=== PATIENT | female | born 1985 | race Caucasian/White ===

== ENCOUNTER 2019-07-21 09:51 | Emergency (ER) | payer OTHER, SELFPAY ==
--- NOTE | 2019-07-21 09:54 | ED.HEATRA ---
HPI - Head Injury General Chief complaint: Head Injury Stated complaint: head injury Time Seen by Provider: 07/21/19 10:12 Source: patient and RN notes reviewed Mode of arrival: ambulatory Limitations: no limitations History of Present Illness HPI Narrative: 34-year-old female presents with concern for head injury. Reports at work yesterday she was emptying a cart full of products when a package of vinyl yuki hit her head. She reports the vinyl yuki was stacked approximately to the same height as her head when 1 of the packages slipped off and hit her head. She reports that hit the left lateral side of her head. She denies any bleeding, open wounds, neck pain. Reports headache and scalp tenderness. She denies any loss of consciousness. She denies vomiting. Reports taking Tylenol for pain. MD Complaint: head injury Related Data Home Medications Medication Instructions Recorded Confirmed escitalopram oxalate mg 07/21/19 Allergies Allergy/AdvReac Type Severity Reaction Status Date / Time No Known Allergies Allergy Unverified 10/21/18 16:04 Review of Systems Review of Systems: Narrative: CONSTITUTIONAL: Denies malaise, chills, sweats, or fever. EYES: Denies visual changes ENT: Denies rhinorrhea CARDIOVASCULAR: Denies chest pain, palpitations, or edema. RESPIRATORY: Denies cough or dyspnea. SKIN: Denies open wounds MUSCULOSKELETAL: Denies back pain, neck pain. Reports left scalp tenderness NEUROLOGIC: Denies numbness, weakness. Reports headache. All systems reviewed & are unremarkable except as noted in HPI and below PMFSH Family History Family History (Updated 01/17/16 @ 23:19 by DOCTOR UNKNOWN) Grandparent Carcinoma of colon Family history of malignant neoplasm of breast Family history of coronary artery disease Diabetes mellitus Family history of malignant neoplasm of brain Father Family history of diabetes mellitus in first degree relative Mother Family history of malignant neoplasm of cervix Family history of malignant neoplasm of breast in first degree relative Hypertension Social History Social History Smoking status: Former smoker Second hand tobacco smoke exposure: Yes Smoking end date: 06/21/14 Alcohol intake: never Comments At time of signature, agree with nursing past medical, surgical, social and family history. There is no relevant family history pertinent to the presenting complaint Exam Narrative: Exam Narrative: GENERAL: Well-appearing, well-nourished, and in no acute distress. HEAD: Normocephalic, atraumatic; no bruising, erythema, open wounds noted. EYES: PERRLA, conjunctivae clear, and EOMI. No nystagmus. ENT: Nares clear, turbinates pink, no rhinorrhea or epistaxis. NECK: Supple. No jugular venous distension or carotid bruits. Carotids were easily palpable bilaterally. CHEST: No respiratory distress. Speaks in full sentences. HEART: Regular rate and rhythm. No murmur heard. EXTREMITIES: Normal range of motion. No edema. Normal strength SKIN: Warm, dry, no erythema, ecchymosis, open wounds noted NEURO: Alert and oriented x3. No focal deficits. Cranial nerves II through XII grossly intact PSYCH: Normal mood and affect Course Course Emergency Course: Patient is aware of diagnosis, understands and agrees to treatment plan. Anticipatory guidance given. Patient agrees to follow-up as directed and is aware of reasons to seek care at the emergency department. Portions of this record may have been created with voice recognition software Vital Signs Vital signs: Vital Signs Temperature 97.4 F L 07/21/19 10:06 Pulse Rate 89 07/21/19 10:06 Respiratory Rate 16 07/21/19 10:06 Blood Pressure 124/82 07/21/19 10:06 Pulse Oximetry 100 07/21/19 10:06 Temperature 97.4 F L 07/21/19 10:06 Pulse Rate 89 07/21/19 10:06 Respiratory Rate 16 07/21/19 10:06 Blood Pressure 124/82 07/21/19 10:06 Pulse Oximetry 100 07/21/19 10:06 R
[2019-07-21 10:06] VITALS: BP 124/82; PULSE 89; RESP 16; TEMP 36.3; O2SAT 100
== END 2019-07-21 10:25 | disposition home or self-care (01) ==
PROVIDERS: Emergency Provider Nurse Practitioner
DX: S09.90XA Unspecified injury of head, initial encounter (principal); W20.8XXA Other cause of strike by thrown, projected or falling object, initial encounter; Z87.891 Personal history of nicotine dependence; F41.9 Anxiety disorder, unspecified
CPT/HCPCS: 99213; G0463

== ENCOUNTER 2020-10-15 03:13 | Emergency (ER) | payer OTHER, SELFPAY ==
[2020-10-15 03:20] VITALS: BP 143/85; PULSE 100; RESP 16; O2SAT 100
--- NOTE | 2020-10-15 03:51 | ED.GENADULT ---
HPI - General Adult General Chief complaint: Upper Respiratory Infection Stated complaint: sorethroat Time Seen by Provider: 10/15/20 03:23 History of Present Illness HPI narrative: Patient is a 35-year-old female who presents the emergency department with sore throat. The patient reports since she has had a sore throat patient states that she has been at work in a doctor's office doing an externship. Patient denies fever reports that whenever she talks she feels as though she is a little hoarse patient denies abdominal pain vomiting diarrhea. The patient reports that she just got her second Covid vaccine. Related Data Allergies Allergy/AdvReac Type Severity Reaction Status Date / Time No Known Allergies Allergy Verified 09/06/19 09:32 Review of Systems Review of Systems: Narrative: A 10 system review of systems was completed on the patient and is negative except for what is stated in the HPI. Nursing and ancillary documentation was reviewed. PMFSH Past Medical History Medical History (Updated 10/15/20 @ 03:55 by Winston Alexander MD) Anxiety Eczema Family History Family History Grandparent Carcinoma of colon Family history of malignant neoplasm of breast Family history of coronary artery disease Diabetes mellitus Family history of malignant neoplasm of brain Father Family history of diabetes mellitus in first degree relative Mother Family history of malignant neoplasm of cervix Family history of malignant neoplasm of breast in first degree relative Hypertension Social History Social History Smoking status: Former smoker Second hand tobacco smoke exposure: Yes Smoking end date: 06/21/14 Alcohol intake: never Exam Narrative: Exam Narrative: GENERAL: Well-appearing, well-nourished, and in no acute distress. HEAD: Normocephalic, atraumatic. EYES: PERRLA and EOMI. ENT: Nares clear, no rhinorrhea or epistaxis. Mucous membranes moist. Oropharynx is slightly erythematous there is no exudate present NECK: Supple. CHEST: Clear to auscultation. No respiratory distress. HEART: Regular rate and rhythm. No murmur heard. Normal peripheral pulses. ABDOMEN: Soft, nontender, nondistended, normal active bowel sounds. EXTREMITIES: Normal range of motion. No edema. SKIN: Warm, dry, no rash. NEURO: No focal deficits. Alert and oriented x3. PSYCH: Normal mood and affect. Course Vital Signs Vital signs: Vital Signs Pulse Rate 100 10/15/20 03:20 Respiratory Rate 16 10/15/20 03:20 Blood Pressure 143/85 H 10/15/20 03:20 Pulse Oximetry 100 10/15/20 03:20 Pulse Rate 100 10/15/20 03:20 Respiratory Rate 16 10/15/20 03:20 Blood Pressure 143/85 H 10/15/20 03:20 Pulse Oximetry 100 10/15/20 03:20 Medical Decision Making Vital Signs Vital Signs: Vital Signs Pulse Rate 100 10/15/20 03:20 Respiratory Rate 16 10/15/20 03:20 Blood Pressure 143/85 H 10/15/20 03:20 Pulse Oximetry 100 10/15/20 03:20 Pulse Rate 100 10/15/20 03:20 Respiratory Rate 16 10/15/20 03:20 Blood Pressure 143/85 H 10/15/20 03:20 Pulse Oximetry 100 10/15/20 03:20 Lab Data Labs: Strep Screen Presumptive Negative *(Reference Range: Negative)* Discharge Plan Discharge Clinical Impression: Acute viral pharyngitis Patient Disposition: Home, Self-Care Condition: Stable Instructions: Antibiotic Form, Pharyngitis (ED) Additional Instructions: A COVID-19 test was sent today he should self quarantine until the results of the test are obtained Prescriptions: No Action albuterol sulfate 90 mcg/actuation HFA aerosol inhaler 1 puff INHALATION Q4H PRN (Reason: shortness of breath or wheezing) Qty: 6.7 RF: 0 benzonatate 200 mg capsule 200 mg PO TID PRN (Reason: c
[2020-10-15 04:10] VITALS: BP 126/91; PULSE 92; RESP 16; O2SAT 97
[2020-10-15 20:46] LABS: SARS-CoV-2 RNA PCR Negative
== END 2020-10-15 04:12 | disposition home or self-care (01) ==
PROVIDERS: Emergency Provider Emergency Medicine
DX: J02.9 Acute pharyngitis, unspecified (principal); Z20.822 Contact with and (suspected) exposure to COVID-19; Z87.891 Personal history of nicotine dependence
CPT/HCPCS: 87081; 87880; 99283; C9803; U0003; U0005

== ENCOUNTER 2021-01-26 11:14 | Emergency (ER) | payer OTHER, SELFPAY ==
[2021-01-26 11:23] VITALS: BP 137/98; PULSE 101; RESP 16; TEMP 36.4; O2SAT 100
--- NOTE | 2021-01-26 11:35 | ED.URI ---
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 Patient states she has a shorter couple day history of sore throat, preceded by usual, seasonal sinus congestion with PND. She is vaccinated and had a recent negative Covid test. No fever, loss of taste/smell, CP, vomiting/diarrhea, S OB, rash. Symptoms are mild, worse when eating Related Data Home Medications Medication Instructions Recorded Confirmed sertraline 100 mg tablet 100 mg PO DAILY 12/24/20 12/24/20 paroxetine HCl mg PO 01/26/21 rosuvastatin mg 01/26/21 Allergies Allergy/AdvReac Type Severity Reaction Status Date / Time No Known Allergies Allergy Verified 12/24/20 08:32 Review of Systems Review of Systems: The patient has been informed that they may have pre-hypertension or Hypertension based on a BP reading in the department. I recommend that the patient call the primary care provider listed on their discharge instructions or a physician of their choice this week to arrange follow up for further evaluation of possible pre-hypertension or Hypertension General/Constitutional: No weight loss,fever Eyes: N0: Redness,discharge Ears/Nose/Throat: No: Epistaxis,ear discharge Respiratory: Denies: Hemoptysis Gastrointestinal: No Vomiting, Bleeding-rectal Skin: No Lumps, eruption Neurologic: No Focal Weakness,Sz Hematologic: Denies: Petechiae/Purpura Psychiatric: No: Suicida ideationl All Other Systems: Reviewed and Negative [facility] Past Medical History Medical History (Updated 01/26/21 @ 11:50 by Bill Reyes MD) Anxiety Eczema Family History Family History Grandparent Carcinoma of colon Family history of malignant neoplasm of breast Family history of coronary artery disease Diabetes mellitus Family history of malignant neoplasm of brain Father Family history of diabetes mellitus in first degree relative Mother Family history of malignant neoplasm of cervix Family history of malignant neoplasm of breast in first degree relative Hypertension Social History Social History (Updated 12/24/20 @ 08:42 by Salome Hansen CMA) Smoking status: Former smoker Second hand tobacco smoke exposure: Yes Smoking end date: 06/21/14 Alcohol intake: never Substance use: unknown Comments At time of signature, agree with nursing past medical, surgical, social and family history. There is no relevant family history pertinent to the presenting complaint Exam Narrative: General Appearance: Overweight/ well nourished EYE: PERRLA, Conjunctiva clear Ears: Auditory canal normal, TM normal Nose: Rhinorrhea, Mucousal erythema Mouth/Throat: MM moist, Uvula midline, Pharyngeal erythema Neck: Supple, No adenopathy Respiratory: No respiratory distress, airway patent Cardiovascular: RRR, No JVD Musculoskeletal: Non tender, Normal strength Skin: Warm, Dry Neurological: A&O x3, CN II-XII intact Psychiatric: Normal mood, Normal affect Course Vital Signs Vital signs: Vital Signs Temperature 97.5 F L 01/26/21 11:23 Pulse Rate 101 H 01/26/21 11:23 Respiratory Rate 16 01/26/21 11:23 Blood Pressure 137/98 H 01/26/21 11:23 Pulse Oximetry 100 01/26/21 11:23 Temperature 97.5 F L 01/26/21 11:23 Pulse Rate 101 H 01/26/21 11:23 Respiratory Rate 16 01/26/21 11:23 Blood Pressure 137/98 H 01/26/21 11:23 Pulse Oximetry 100 01/26/21 11:23 MDM - URI/Sore Throat Lab Data Labs: Lab Results 01/26/21 Range/Units 11:23 POC SARS CoV-2 Ag Negative (Negative) Discharge Plan Discharge Clinical Impression: Odynophagia Patient Disposition:
== END 2021-01-26 11:54 | disposition home or self-care (01) ==
PROVIDERS: Emergency Provider Emergency Medicine; PCP Emergency Medicine
DX: R13.10 Dysphagia, unspecified (principal); Z20.822 Contact with and (suspected) exposure to COVID-19; F41.9 Anxiety disorder, unspecified
CPT/HCPCS: 87426; 99213; C9803; G0463

== ENCOUNTER 2021-10-31 16:57 | Emergency (ER) | payer OTHER, SELFPAY ==
--- NOTE | 2021-10-31 17:20 | ED.URI ---
HPI - URI/Sore Throat General Chief Complaint: Upper Respiratory Infection Stated Complaint: [place]/SINUS CONGESTION Time Seen by Provider: 10/31/21 17:20 Source: patient and RN notes reviewed Mode of arrival: ambulatory Limitations: no limitations History of Present Illness HPI Narrative: 36-year-old female presented for complaint of sinus pressure, congestion, post nasal drainage and sore throat for 1 week. The week prior she endorses stomach issues which have resolved. She denies cough, shortness of breath, wheezing, fevers or chills. She has been taking [id number] antihistamine for symptoms. She has boosted for COVID and vaccinated for flu. MD elicited complaint: cough Related Data Home Medications Medication Instructions Recorded Confirmed venlafaxine 75 mg capsule,extended 75 mg PO DAILY 09/02/21 release 24 hr Allergies Allergy/AdvReac Type Severity Reaction Status Date / Time No Known Allergies Allergy Verified 09/02/21 10:45 Review of Systems Review of Systems: CONSTITUTIONAL: denies malaise, chills, sweats, fever EYES: Denies visual changes, redness, or discharge ENT: Reports rhinorrhea, congestion, sinus pain, sore throat CARDIOVASCULAR: Denies chest pain, palpitations, edema RESPIRATORY: Reports post nasal drainage. Denies dyspnea GASTROINTESTINAL: Denies abdominal pain, nausea, vomiting, diarrhea SKIN: Denies rash or itching MUSCULOSKELETAL: denies myalgia NEUROLOGIC: Denies headache PMFSH Past Medical History Medical History Anxiety Eczema Surgical History Surgical History H/O bilateral salpingectomy History of lumpectomy of left breast History of tonsillectomy and adenoidectomy [place] teeth removed Family History Family History Grandparent Carcinoma of colon Family history of malignant neoplasm of breast Family history of coronary artery disease Diabetes mellitus Family history of malignant neoplasm of brain Father Family history of diabetes mellitus in first degree relative Mother Family history of malignant neoplasm of cervix Family history of malignant neoplasm of breast in first degree relative Hypertension Social History Social History Smoking status: Former smoker Second hand tobacco smoke exposure: Yes Smoking end date: 06/21/14 Alcohol intake: never Substance use: unknown Exam Narrative: GENERAL: well-appearing HEAD: Normocephalic EYES: conjunctivae clear ENT: Mucous membranes moist. TM pearly castañeda with normal light reflex bilaterally; no tragal tenderness. Oropharynx erythematous without lesions or exudate, no drooling, no hoarseness, no trismus, uvula midline. NECK: Supple. No lymphadenopathy CHEST: Clear to auscultation, breath sounds equal. No respiratory distress, speaks in full sentences. HEART: Regular rate and rhythm. No murmur heard. SKIN: Warm, dry, no rash. NEURO: Alert and oriented x3. PSYCH: Normal mood and affect Course Course Emergency Course: Patient is aware of diagnosis, understands and agrees to treatment plan. Anticipatory guidance given. Patient agrees to follow-up as directed and is aware of reasons to seek care at the emergency department. Portions of this record may have been created with voice recognition software Level of Care: Express Care Visit Vital Signs Vital signs: reviewed MDM - URI/Sore Throat MDM Narrative Medical decision making narrative: Strep, COVID, flu negative. She is stable and appropriate for outpatient treatment and follow-up. Differential Diagnosis Differential diagnosis: Likely upper respiratory infection, sinusitis, viral infection, influenza and pharyngitis Lab Data Attestation: I reviewed the patient's lab results. Discharge Plan Discharge Cli
[2021-10-31 17:36] VITALS: BP 124/88; PULSE 98; RESP 16; TEMP 36.1; O2SAT 100
== END 2021-10-31 17:35 | disposition home or self-care (01) ==
PROVIDERS: Emergency Provider Nurse Practitioner Family; PCP Emergency Medicine
DX: J30.2 Other seasonal allergic rhinitis (principal); Z20.822 Contact with and (suspected) exposure to COVID-19; Z87.891 Personal history of nicotine dependence; F41.9 Anxiety disorder, unspecified
CPT/HCPCS: 87081; 87426; 87804; 87880; 99213; C9803; G0463

== ENCOUNTER 2022-06-30 16:50 | Emergency (ER) | payer BC, SELFPAY ==
--- NOTE | 2022-06-30 16:54 | ED.EAR ---
HPI - Ear Problem General Chief complaint: Ear Stated complaint: EARACHE Time Seen by Provider: 06/30/22 16:55 Source: patient and RN notes reviewed History of Present Illness HPI Narrative: Patient is a 37-year-old female who presents to the Urgent Care with complaints of right earache for the last 2 weeks and right frontal sinus drainage/pain. Patient states she has taken ibuprofen today and does take daily Claritin D. denies any fevers, nausea, vomiting. No other acute complaints. No acute distress noted. Patient aware of the plan of care. Some parts of this dictation were generated by voice recognition software and may contain typographical and/or grammatical inaccuracies. Related Data Home Medications Medication Instructions Recorded Confirmed venlafaxine 75 mg capsule,extended 75 mg PO DAILY 09/02/21 06/30/22 release 24 hr (Effexor XR) rosuvastatin 5 mg tablet 5 mg PO DAILY 06/30/22 06/30/22 Allergies Allergy/AdvReac Type Severity Reaction Status Date / Time No Known Allergies Allergy Verified 06/30/22 16:56 Review of Systems Review of Systems: CONSTITUTIONAL: Denies fever, chills, or sweats. EYES: Denies visual changes, redness, or discharge. ENT: Reports right-sided frontal sinus pressure/pain and right otalgia CARDIOVASCULAR: Denies chest pain, palpitations, or edema. RESPIRATORY: Denies cough or dyspnea. GASTROINTESTINAL: Denies abdominal pain, nausea, vomiting, or diarrhea. GENITOURINARY: Denies dysuria or hematuria. SKIN: Denies rash or itching. MUSCULOSKELETAL: Denies back pain, joint pain, or myalgia. NEUROLOGIC: Denies headache, numbness, or weakness. All other systems reviewed are negative, except as documented in HPI. PENDING SALE TO [facility] Past Medical History Medical History Anxiety Eczema Surgical History Surgical History H/O bilateral salpingectomy History of lumpectomy of left breast History of tonsillectomy and adenoidectomy [place] teeth removed Family History Family History Grandparent Carcinoma of colon Family history of malignant neoplasm of breast Family history of coronary artery disease Diabetes mellitus Family history of malignant neoplasm of brain Father Family history of diabetes mellitus in first degree relative Mother Family history of malignant neoplasm of cervix Family history of malignant neoplasm of breast in first degree relative Hypertension Social History Social History Smoking status: Former smoker Second hand tobacco smoke exposure: Yes Smoking end date: 06/21/14 Alcohol intake: never Substance use: unknown Comments At the time of my signature, I reviewed and agree with the nursing past medical, surgical, social, and family history. There is no relevant family history pertinent to the patient complaint. Exam Narrative: GENERAL: This is a well-nourished, well-developed patient, in no apparent distress. HEAD: normocephalic, atraumatic. Frontal sinus tenderness EYES: PERRL. Sclera clear/white. Vision is grossly intact. EARS: External ears normal, auditory canals clear and without drainage, TMs normal without perforation. Hearing grossly intact. NOSE: External nose normal with no obvious nasal discharge, nares without redness, no rhinorrhea. THROAT: Mucous membranes moist, posterior pharynx clear. Moderate postnasal drainage NECK: Neck supple, non-tender without lymphadenopathy, masses or thyromegaly. CARDIOVASCULAR: Regular rate and rhythm without murmurs, gallops, or rubs. RESPIRATORY: Clear to auscultation. Breath sounds equal bilaterally. No wheezes, rales, or rhonchi. SKIN: warm, intact with no suspicious lesions or rash, good texture and turgor. NEURO: awake, alert, and oriented to person, place and time. There were no obv
[2022-06-30 16:58] VITALS: BP 132/90; PULSE 85; RESP 16; TEMP 36.6; O2SAT 99
== END 2022-06-30 17:13 | disposition home or self-care (01) ==
PROVIDERS: Emergency Provider Nurse Practitioner Family; PCP Emergency Medicine
DX: J32.9 Chronic sinusitis, unspecified (principal); Z87.891 Personal history of nicotine dependence; F41.9 Anxiety disorder, unspecified
CPT/HCPCS: 99213; G0463

== ENCOUNTER 2023-03-20 10:10 | Outpatient (CLI) | payer BC, SELFPAY ==
--- NOTE | ~2023-03-20 | MM_ITS ---
EXAMINATION: MM screening tree BI w ivonne HISTORY: Screening mammogram, family history of breast cancer in her mother. TECHNIQUE: Craniocaudal and mediolateral oblique 3-D tomosynthesis images were obtained and synthetic 2-D images were generated. CAD analysis was submitted and interpreted. COMPARISON: 06/16/2010 BREAST PARENCHYMAL COMPOSITION: There are scattered areas of fibroglandular density. FINDINGS: RIGHT BREAST: No suspicious mass, calcification, or architectural distortion are identified to sugges t malignancy. There has been no suspicious interval change. LEFT BREAST: An asymmetry is present in line with the nipple axis in the posterior third of the breas t on the mediolateral oblique view. IMPRESSION: 1. Left breast asymmetry. 2. Additional mammographic views and possible breast ultrasound are recommended. BI-RADS Category 0: Incomplete: Needs additional imaging evaluation. Reviewed, dictated and finalized at location A. IMPRESSION: 1. Left breast asymmetry. 2. Additional mammographic views and possible breast ultrasound are recommended . BI-RADS Category 0: Incomplete: Needs additional imaging evaluation.
== END 2023-03-20 10:11 | disposition home or self-care (01) ==
LOC: ANHIMG 10:13
PROVIDERS: PCP Emergency Medicine; Visit Provider Registered Nurse
DX: Z12.31 Encounter for screening mammogram for malignant neoplasm of breast (principal); N64.89 Other specified disorders of breast
CPT/HCPCS: 77063; 77067

== ENCOUNTER 2023-03-24 11:21 | Outpatient (CLI) | payer BC, SELFPAY ==
--- NOTE | ~2023-03-24 | MMUS_ITS ---
EXAMINATION: MM diagnostic tree LT w ivonne, US breast LT limited HISTORY: Left breast asymmetry on screening mammogram TECHNIQUE: Additional 3-D tomosynthesis images of the left breast were performed and synthetic 2-D im ages were generated. CAD analysis was submitted and interpreted. High resolution limited left breast ultrasound was performed. COMPARISON: 03/20/2023, 06/29/2011 FINDINGS: MAMMOGRAPHIC FINDINGS: A subtle asymmetry persists in the posterior third of the breast but somewhat disperses with spot com pression. No definite architectural distortion or suspicious calcification are identified. ULTRASOUND: There is no evidence of focal abnormal solid or cystic mass in the vicinity of the mammographic findi ng in question. IMPRESSION: 1. Probably benign left breast asymmetry. 2. Recommend 6 month follow-up left diagnostic mammogram and possible ultrasound. BI-RADS category 3, probably benign findings. Reviewed, dictated and finalized at location A. IMPRESSION: 1. Probably benign left breast asymmetry. 2. Recommend 6 month follow-up left diagnostic mammogram and possible ultrasoun d. BI-RADS category 3, probably benign findings.
== END 2023-03-24 11:22 | disposition home or self-care (01) ==
LOC: ANHIMG 11:22
PROVIDERS: PCP Emergency Medicine; Visit Provider Registered Nurse
DX: R92.8 Other abnormal and inconclusive findings on diagnostic imaging of breast (principal)
CPT/HCPCS: 76642; 77061; 77065; G0279

== ENCOUNTER 2023-05-22 09:42 | Emergency (ER) | payer BC, SELFPAY ==
[2023-05-22 09:56] VITALS: BP 116/85; PULSE 93; RESP 16; TEMP 36.5; O2SAT 100
--- NOTE | 2023-05-22 10:15 | ED.GENADULT ---
HPI - General Adult General Chief complaint: Upper Respiratory Infection Stated complaint: Eye problems;tight lungs Time Seen by Provider: 05/22/23 10:17 Source: patient, RN notes reviewed and old records reviewed Mode of arrival: ambulatory Limitations: no limitations History of Present Illness HPI narrative: 38 year old female with complaints of 3 days of itchy eyes, with some burning sensation. Patient reports that she has been having some cough intermittently since but today today feels a little short of breath and has a headache, last night she states that chest felt tight. Patient states that she took Kaitlin D last evening and it only helped for a couple of hours. Patient reports that her throat and ears feel itchy and she feels itchy all over with no rash noted. Patient denies any new medications, foods, lotions. soaps, or any contact with pets. No fever,chills or body aches. MD complaint: itchy eyes, itchy throat, itchy all over, cough some dyspnea and tightness. Onset (ago): day(s) (3 days eyes 1 day other symptoms) Severity scale (1-10): 5 Treatments prior to arrival: other (Kaitlin D singulair but now out.) Related Data Home Medications Medication Instructions Recorded Confirmed venlafaxine 75 mg capsule,extended 75 mg PO DAILY 09/02/21 05/22/23 release 24 hr (Effexor XR) rosuvastatin 5 mg tablet 5 mg PO DAILY 06/30/22 05/22/23 drospirenone (contraceptive) 4 mg 05/22/23 05/22/23 (28) tablet (Slynd) Allergies Allergy/AdvReac Type Severity Reaction Status Date / Time No Known Allergies Allergy Verified 09/30/22 14:16 Review of Systems Review of Systems: CONSTITUTIONAL: Denies fever, chills, or sweats. EYES: Denies visual changes, redness, or discharge. ENT: Denies rhinorrhea, congestion,scratchy throat, or otalgia. CARDIOVASCULAR: Denies chest pain, palpitations, or edema states chest tightness at times. RESPIRATORY: Reports cough or dyspnea. GASTROINTESTINAL: Denies abdominal pain, nausea, vomiting, or diarrhea. GENITOURINARY: Denies dysuria or hematuria. SKIN: Denies rash or itching. MUSCULOSKELETAL: Denies back pain, joint pain, or myalgia. NEUROLOGIC: Reports headache,no numbness, or weakness. PSYCHIATRIC: Reports anxiety or depression. All systems reviewed & are unremarkable except as noted in HPI and below PMFSH Past Medical History Medical History (Updated 05/24/23 @ 10:52 by Elenita Rodrigez NP) Anxiety Eczema History of x 1 History of vaginal delivery x 2 Lung collapse 2015 Seasonal allergies Surgical History Surgical History H/O bilateral salpingectomy History of lumpectomy of left breast History of tonsillectomy and adenoidectomy [place] teeth removed Family History Family History Grandparent Carcinoma of colon Family history of malignant neoplasm of breast Family history of coronary artery disease Diabetes mellitus Family history of malignant neoplasm of brain Father Family history of diabetes mellitus in first degree relative Mother Family history of malignant neoplasm of cervix Family history of malignant neoplasm of breast in first degree relative Hypertension Social History Social History Smoking status: Former smoker Second hand tobacco smoke exposure: Yes Smoking end date: 06/21/14 Alcohol intake: current Alcohol use details: Socially Substance use: never Lack of Transportation: No Lack of Food: Never True Current Housing: I Have Housing Concerned About Future Housing: No Difficulty Paying Gas/Electric Bills: No Difficulty Paying for Meds: No Currently Unemployed: No Difficulty w/ Childcare or Family Care: No Living arrangements: with family Occupation/Education: occupation Gender identity (if verbalized by the patient): Femal
== END 2023-05-22 10:55 | disposition home or self-care (01) ==
PROVIDERS: Emergency Provider Registered Nurse; PCP Emergency Medicine
DX: J30.2 Other seasonal allergic rhinitis (principal); Z20.822 Contact with and (suspected) exposure to COVID-19; Z87.891 Personal history of nicotine dependence
CPT/HCPCS: 87426; 87804; 99213; C9803; G0463

== ENCOUNTER 2023-08-17 08:28 | Emergency (ER) | payer BC, SELFPAY ==
[2023-08-17 08:39] VITALS: BP 141/87; PULSE 97; RESP 16; TEMP 36.6; O2SAT 100
--- NOTE | 2023-08-17 08:45 | ED.URI ---
HPI - URI/Sore Throat General Chief Complaint: Upper Respiratory Infection Stated Complaint: body aches, chills, cough Time Seen by Provider: 08/17/23 08:46 Source: patient, RN notes reviewed and old records reviewed Mode of arrival: ambulatory Limitations: no limitations History of Present Illness HPI Narrative: 38-year-old female [facility] complaints of body aches since Wednesday, dry cough, sinus congestion and drainage,no known fever. Patient has been taking DayQuil, Robitussin and some Ibuprofen for her symptoms. Patient reports that she did home COVID this morning which was negative. MD elicited complaint: cough, rhinorrhea and nasal congestion Onset (ago): day(s) (day 3 of symptoms) Pain scale (0-10): 3 Able to tolerate fluids by mouth: Yes Treatments prior to arrival: ibuprofen and other (DayQuil, Robitussin) Related Data Home Medications Medication Instructions Recorded Confirmed venlafaxine 75 mg capsule,extended 75 mg PO DAILY 09/02/21 08/17/23 release 24 hr (Effexor XR) rosuvastatin 5 mg tablet 5 mg PO DAILY 06/30/22 08/17/23 drospirenone (contraceptive) 4 mg 1 mg PO DAILY 05/22/23 08/17/23 (28) tablet (Slynd) Allergies Allergy/AdvReac Type Severity Reaction Status Date / Time No Known Allergies Allergy Verified 08/17/23 08:30 Review of Systems Review of Systems: CONSTITUTIONAL:Reports malaise, chills, sweats, or fever. EYES: Denies visual changes, redness, or discharge. ENT: Reports rhinorrhea, congestion,no sinus pain, no otalgia and no sore throat. CARDIOVASCULAR: Denies chest pain, palpitations, or edema. RESPIRATORY: Reports cough.? Denies dyspnea. GASTROINTESTINAL: Denies abdominal pain, nausea, vomiting, diarrhea SKIN: Denies rash or itching. MUSCULOSKELETAL: reports myalgia. NEUROLOGIC: Denies headache. All systems reviewed & are unremarkable except as noted in HPI and below PMFSH Past Medical History Medical History Anxiety Eczema History of x 1 History of vaginal delivery x 2 Lung collapse 2015 Seasonal allergies Surgical History Surgical History H/O bilateral salpingectomy History of lumpectomy of left breast History of tonsillectomy and adenoidectomy [place] teeth removed Family History Family History Grandparent Carcinoma of colon Family history of malignant neoplasm of breast Family history of coronary artery disease Diabetes mellitus Family history of malignant neoplasm of brain Father Family history of diabetes mellitus in first degree relative Mother Family history of malignant neoplasm of cervix Family history of malignant neoplasm of breast in first degree relative Hypertension Social History Social History Smoking status: Former smoker Second hand tobacco smoke exposure: Yes Smoking end date: 06/21/14 Alcohol intake: current Alcohol use details: Socially Substance use: never Lack of Transportation: No Lack of Food: Never True Current Housing: I Have Housing Concerned About Future Housing: No Difficulty Paying Gas/Electric Bills: No Difficulty Paying for Meds: No Currently Unemployed: No Difficulty w/ Childcare or Family Care: No Living arrangements: with family Occupation/Education: occupation Gender identity (if verbalized by the patient): Female Sexual Orientation (if Verbalized by the Patient): Straight or Heterosexual Spiritual care concerns: No Comments At time of signature, agree with nursing past medical, surgical, social and family history. There is no relevant family history pertinent to the presenting complaint Exam Narrative: GENERAL: Well-appearing, well-nourished, and in no acute distress. HEAD: Normocephalic EYES: PERRLA,
== END 2023-08-17 09:18 | disposition home or self-care (01) ==
PROVIDERS: Emergency Provider Registered Nurse; PCP Emergency Medicine
DX: J10.1 Influenza due to other identified influenza virus with other respiratory manifestations (principal); Z20.822 Contact with and (suspected) exposure to COVID-19; Z87.891 Personal history of nicotine dependence; F41.9 Anxiety disorder, unspecified
CPT/HCPCS: 87426; 87804; 99213; G0463

== ENCOUNTER 2023-09-13 16:46 | Emergency (ER) | payer BC, SELFPAY ==
--- NOTE | 2023-09-13 16:50 | ED.GENADULT ---
HPI - General Adult General Chief complaint: Upper Respiratory Infection Stated complaint: Cough Source: patient, RN notes reviewed and old records reviewed Mode of arrival: ambulatory Limitations: no limitations History of Present Illness HPI narrative: 38-year-old female presents to [facility] with complaints cough, congestion this started over 2 weeks ago. Patient states was diagnosed with influenza B the symptoms never really went away. Patient states cough is worsening. Patient taking [id number] medications with no relief. Related Data Home Medications Medication Instructions Recorded Confirmed venlafaxine 75 mg capsule,extended 75 mg PO DAILY 09/02/21 09/13/23 release 24 hr (Effexor XR) rosuvastatin 5 mg tablet 5 mg PO DAILY 06/30/22 09/13/23 Allergies Allergy/AdvReac Type Severity Reaction Status Date / Time No Known Allergies Allergy Verified 09/13/23 16:52 Review of Systems Constitutional: Constitutional: Reports no additional constitutional complaints, Denies body ache(s), Denies chills, Denies fatigue, Denies fever(s) and Denies headache(s) Eyes: Eyes: Reports no additional eye complaints and Denies blurry vision ENT: Reports system reviewed and no additional complaints, except as documented, Denies vertigo, Denies dizziness, Denies ear discharge, Denies otalgia, Denies facial pain, Denies headache(s), Reports nasal congestion, Denies nasal discharge, Denies sinus pain, Denies sinus pressure and Denies sore throat Cardiovascular: Cardiovascular: Reports no additional cardiovascular complaints, Denies chest pain, Denies chest pain at rest, Denies rapid heart rate and Denies dyspnea Respiratory: Respiratory: Reports no additional respiratory complaints, Reports chest congestion, Reports cough, Denies pain on inspiration, Denies pain with cough and Denies dyspnea Gastrointestinal: Gastrointestinal: Denies abdominal pain, Denies diarrhea, Denies nausea and Denies vomiting Integumentary/Breasts: Skin/Breast: Denies rash Neurologic: Reports system reviewed and no additional complaints, except as documented, Denies vertigo, Denies dizziness and Denies headache(s) Endocrine: Endocrine: Denies fatigue PMFSH Past Medical History Medical History Anxiety Eczema History of x 1 History of vaginal delivery x 2 Lung collapse 2015 Seasonal allergies Surgical History Surgical History H/O bilateral salpingectomy History of lumpectomy of left breast History of tonsillectomy and adenoidectomy [place] teeth removed Family History Family History Grandparent Carcinoma of colon Family history of malignant neoplasm of breast Family history of coronary artery disease Diabetes mellitus Family history of malignant neoplasm of brain Father Family history of diabetes mellitus in first degree relative Mother Family history of malignant neoplasm of cervix Family history of malignant neoplasm of breast in first degree relative Hypertension Social History Social History Smoking status: Former smoker Second hand tobacco smoke exposure: Yes Smoking end date: 06/21/14 Alcohol intake: current Alcohol use details: Socially Substance use: never Lack of Transportation: No Lack of Food: Never True Current Housing: I Have Housing Concerned About Future Housing: No Difficulty Paying Gas/Electric Bills: No Difficulty Paying for Meds: No Currently Unemployed: No Difficulty w/ Childcare or Family Care: No Living arrangements: with family Occupation/Education: occupation Gender identity (if verbalized by the patient): Female Sexual Orientation (if Verbalized by the Patient): Straight or Heterosexual Spiritual care concerns: No Comments
[2023-09-13 16:51] VITALS: BP 121/90; PULSE 107; RESP 16; TEMP 36.3; O2SAT 99
== END 2023-09-13 17:06 | disposition home or self-care (01) ==
PROVIDERS: Emergency Provider Registered Nurse; PCP Emergency Medicine
DX: J22 Unspecified acute lower respiratory infection (principal); Z87.891 Personal history of nicotine dependence; F41.9 Anxiety disorder, unspecified
CPT/HCPCS: 99213; G0463

== ENCOUNTER 2023-09-23 11:23 | Outpatient (CLI) | payer BC, SELFPAY ==
--- NOTE | ~2023-09-23 | MMUS_ITS ---
EXAMINATION: MM diagnostic tree LT w ivonne, US breast LT limited HISTORY: Follow-up left breast asymmetry TECHNIQUE: Additional 3-D tomosynthesis images of the left breast were performed and synthetic 2-D im ages were generated. CAD analysis was submitted and interpreted. High resolution Limited left breast ultrasound was performed. COMPARISON: Comparison to multiple prior studies sequentially, with oldest reviewed study dated 03/20. BREAST PARENCHYMAL COMPOSITION: Not dense: There are scattered areas of fibroglandular density. FINDINGS: MAMMOGRAPHIC FINDINGS: Left breast asymmetries compress with spot and mediolateral views. There is a focal asymmetry superio rly in the left breast on spot MLO view, likely benign intramammary lymph node. ULTRASOUND: Limited left breast ultrasound: At 1:00, 5 cm from the nipple there is a 3 mm cyst. No suspicious mas ses to suggest malignancy. IMPRESSION: 1. No evidence for malignancy in the left breast. 2. Routine yearly screening mammogram and regular clinical breast examination are recommended. BI-RADS Category 2: Benign finding(s). Reviewed, dictated and finalized at location [facility]. IMPRESSION: 1. No evidence for malignancy in the left breast. 2. Routine yearly screening mammogram and regular clinical breast examination a re recommended. BI-RADS Category 2: Benign finding(s).
== END 2023-09-23 11:24 | disposition home or self-care (01) ==
PROVIDERS: PCP Emergency Medicine; Visit Provider Registered Nurse
DX: R92.8 Other abnormal and inconclusive findings on diagnostic imaging of breast (principal)
CPT/HCPCS: 76642; 77061; 77065; G0279

== ENCOUNTER 2023-11-05 06:50 | Emergency (ER) | payer BC, SELFPAY ==
--- NOTE | ~2023-11-05 | CT_ITS ---
CT of the Abdomen and Pelvis: Indication: Abdominal pain Technique: 2.5 mm axial scans were obtained through the abdomen and pelvis following intravenous adm inistration of 100 cc of Omnipaque 350. Dose reduction technique was used on this scan by utilizing a utomated exposure control and iterative reconstruction technique. The dose-length product (DLP) was 6 03.49 mGy-cm. Findings: Scans through the lung bases are unremarkable. The liver, spleen, pancreas, gallbladder, adrenals and left kidney are within normal limits. 3 mm non obstructing right renal stone present. No evidence of aortic aneurysm. No lymphadenopathy. No bowel obstruction or bowel wall thickening. There is no evidence to suggest acute appendicitis. Images through the pelvis were performed. Urinary bladder unremarkable. No pelvic mass seen. No ascit es. Impression: No acute abnormality. 3 mm nonobstructing right renal stone. Reviewed, dictated and finalized at [facility]. Impression: No acute abnormality. 3 mm nonobstructing right renal stone.
[2023-11-05 06:53] VITALS: BP 129/76; PULSE 107; RESP 20; TEMP 36.7; O2SAT 100
[2023-11-05] MEDS: LACTATED RINGERS 1,000 ML 999 ML IV CONT ×2 (07:24→10:11)
[2023-11-05 07:39] LABS: Basophils Percent Auto 0.2 % (0.2-1.2); Eosinophils Absolute Auto 0.1 K/mm3 (0-0.3); Eosinophils Percent Auto 1.4 % (0-4.4); Hematocrit 42.8 % (37.0-47.0); Immature Granulocyte Absolute 0.01 K/mm3 (0.00-0.031); Immature Granulocyte Percent A 0.2 % (0-0.5); Lymphocytes Absolute Auto 0.66 K/mm3 (0.9-3.2); Lymphocytes Percent Auto 15.6 % (18.3-44.2); Mean Corpuscular HGB Conc 32.7 g/dl (32-36); Mean Corpuscular Hemoglobin 30.2 pg (26-34); Mean Corpuscular Volume 92.4 fl (80-100); Mean Platelet Volume 9.9 fl (7.4-10.4); Monocytes Absolute Auto 0.4 K/mm3 (0.1-0.6); Neutrophils Absolute Auto 3.1 K/mm3 (1.3-6.7); Neutrophils Percent Auto 73.6 % (45.5-73.1); Platelet Count Result 215 k/mm3 (150-375); Red Blood Count 4.63 M/mm3 (4.2-5.4); Red Cell Distribution Width 12.6 % (11.5-14.5); White Blood Count 4.2 K/mm3 (4.5-10.0)
[2023-11-05 07:45] LABS: Pregnancy On Board Control Positive; Urine Pregnancy Test Negative
[2023-11-05 07:47] LABS: Appearance Urine Clear (Clear); Bacteria Urine None Seen /hpf; Bilirubin Urine Negative (Negative); Blood Urine Non-Hemolyzed Trace (Negative); Color Urine Yellow (Yellow); Glucose Urine UA Negative (Negative); Ketones Urine Trace mg/dL (Negative); Leukocyte Esterase Ur Trace LEU/UL (Negative); Nitrate Urine Negative (Negative); Non Pathogenic Casts 0-2; Protein Urine Trace mg/dL (Negative); RBC Urine 0-2 /hpf (0-2); Specific Grav Ur 1.023 (1.001-1.035); Squamous Epithelial Cell Urine Few /hpf (Few); Urobilinogen Urine 0.2 mg/dL (<2.0); WBC Urine 0-5 /hpf (0-3)
[2023-11-05 07:49] LABS: Alanine Aminotransferase 40 U/L (6-35); Albumin Level 4.2 g/dL (3.5-5.1); Alkaline Phosphatase 72 U/L (38-126); Anion Gap 6 mmol/L (4-12); Aspartate Amino Transferase 41 U/L (14-36); Bilirubin,Total 0.2 mg/dL (0.2-1.3); Blood Urea Nitrogen 10 mg/dL (7-17); Calcium 8.6 mg/dL (8.4-10.2); Carbon Dioxide 21 mmol/L (22-30); Chloride 111 mmol/L (98-107); Estimated Glomerular Filt Rate > 60; Glucose 104 mg/dL (65-110); Lipase 111 U/L (23-300); Potassium 3.9 mmol/L (3.4-5.0); Sodium 138 mmol/L (137-145)
[2023-11-05 07:51] LABS: Add Urine Microscopic? YES
[2023-11-05 08:01] VITALS: BP 124/85; PULSE 83; RESP 18; TEMP 36.6; O2SAT 100
--- NOTE | 2023-11-05 08:36 | ED.ABDPAIN ---
HPI - Abdominal Pain General Chief Complaint: Abdominal Pain Stated Complaint: fever, abd pain Time Seen by Provider: 11/05/23 07:00 History of Present Illness HPI narrative: Patient states that for the last week or so she has been having constipation, and then yesterday started having diarrhea and right abdominal pain/cramping. Also some chills Related Data Home Medications Medication Instructions Recorded Confirmed venlafaxine 75 mg capsule,extended 75 mg PO DAILY 09/02/21 10/29/23 release 24 hr (Effexor XR) rosuvastatin 5 mg tablet 5 mg PO DAILY 06/30/22 10/29/23 cetirizine 10 mg capsule (Zyrtec) 10 mg PO DAILY PRN 10/29/23 10/29/23 fluticasone furoate 50 inhalation 10/29/23 10/29/23 mcg-vilanterol 25 mcg/dose inhalation powder (Breo Ellipta) montelukast 10 mg tablet 10 mg PO DAILY 10/29/23 10/29/23 (Singulair) Allergies Allergy/AdvReac Type Severity Reaction Status Date / Time No Known Allergies Allergy Verified 11/05/23 08:01 Review of Systems Review of Systems: All systems reviewed & are unremarkable except as noted in HPI and below PMFSH Past Medical History Medical History Anxiety Eczema History of x 1 History of vaginal delivery x 2 Lung collapse 2015 Seasonal allergies Surgical History Surgical History H/O bilateral salpingectomy History of lumpectomy of left breast History of tonsillectomy and adenoidectomy [place] teeth removed Family History Family History Grandparent Carcinoma of colon Family history of malignant neoplasm of breast Family history of coronary artery disease Diabetes mellitus Family history of malignant neoplasm of brain Father Family history of diabetes mellitus in first degree relative Mother Family history of malignant neoplasm of cervix Family history of malignant neoplasm of breast in first degree relative Hypertension Social History Social History Smoking status: Former smoker Second hand tobacco smoke exposure: Yes Smoking end date: 06/21/14 Alcohol intake: current Alcohol use details: Socially Substance use: never Lack of Transportation: No Lack of Food: Never True Current Housing: I Have Housing Concerned About Future Housing: No Difficulty Paying Gas/Electric Bills: No Difficulty Paying for Meds: No Currently Unemployed: No Difficulty w/ Childcare or Family Care: No Living arrangements: with family Occupation/Education: occupation Gender identity (if verbalized by the patient): Female Sexual Orientation (if Verbalized by the Patient): Straight or Heterosexual Spiritual care concerns: No Exam Narrative: EXAMINATION OF ORGAN SYSTEMS/BODY AREAS: Constitutional: Vital signs per nursing GENERAL:[No acute distress, non-toxic appearing.] HEAD: Normal with no signs of head trauma. EYES: EOMI, conjunctiva normal ENT: Hearing grossly intact LUNGS: Nonlabored breathing. HEART: [Regular rate and rhythm] ABD: [Soft], [very minimally tender to palpation to right side, no right lower quadrant tenderness, no McBurney's point tenderness] EXT: Normal range of motion SKIN: [No rashes or lesions.] NEURO: [Alert and oriented x 3. No gross focal sensory or strength deficits.] PSYCH: Normal affect Course Vital Signs Vital signs: Vital Signs Temperature 98.1 F 11/05/23 06:53 Pulse Rate 107 H 11/05/23 06:53 Respiratory Rate 20 11/05/23 06:53 Blood Pressure 129/76 11/05/23 06:53 Pulse Oximetry 100 11/05/23 06:53 Oxygen Delivery Room Air 11/05/23 06:53 Temperature 99.0 F 11/05/23 09:38 Pulse Rate 77 11/05/23 11:31 Respiratory Rate 18 11/05/23 11:31 Blood Pressure 117/77 11/05/23 11:31 Pulse Oximetry 100 11/05/23 11:31 Oxygen Delivery
[2023-11-05 09:38] VITALS: BP 124/85; PULSE 89; RESP 18; TEMP 37.2; O2SAT 100
[2023-11-05] MEDS: KETOROLAC 15 MG/ML VIAL (*BKC) IV PUSH (10:10)
[2023-11-05 11:31] VITALS: BP 117/77; PULSE 77; RESP 18; O2SAT 100
== END 2023-11-05 11:32 | disposition home or self-care (01) ==
PROVIDERS: Emergency Provider Emergency Medicine; PCP Emergency Medicine
DX: R10.9 Unspecified abdominal pain (principal); F41.9 Anxiety disorder, unspecified; Z87.891 Personal history of nicotine dependence; Z90.79 Acquired absence of other genital organ(s); N20.0 Calculus of kidney
CPT/HCPCS: 36415; 74177; 80053; 81001; 81025; 83690; 85025; 96361; 96374; 99284; J1885; J7120; Q9967

== ENCOUNTER 2025-01-13 08:10 | Outpatient (CLI) | payer OTHER, SELFPAY ==
--- NOTE | ~2025-01-13 | MM_ITS ---
EXAMINATION: MM screening tree BI w ivonne HISTORY: Screening TECHNIQUE: Craniocaudal and mediolateral oblique 3-D tomosynthesis images were obtained and synthetic 2-D images were generated. CAD analysis was submitted and interpreted. COMPARISON: Comparison to multiple prior studies sequentially, with oldest reviewed study dated 03/20. BREAST PARENCHYMAL COMPOSITION: Not dense: There are scattered areas of fibroglandular density. FINDINGS: There is no evidence of suspicious mass, calcification, or architectural distortion to sugg est malignancy in either breast. There has been no suspicious interval change. IMPRESSION: 1. No mammographic evidence of malignancy. 2. Recommend routine screening mammography in one year. BI-RADS Category 1: Negative Reviewed, dictated and finalized at location A.
--- OUTSIDE RECORDS SUMMARY | 2025-01-13 08:13 | XMS_ITS | Clinical Summary ---
Author Organization [facility] Address [address] [address] Care Team Providers Care Thread Spooler Name Role Phone Ponce Flores MD Primary Care Provider [phone] Clinton Kennedy MD Unavailable [phone] [facility],non-owned Affiliates and Associated Physician Practices is amultiple site organization consisting of ambulatory clinics and hospital sitesin [place], [place], [place] and [place]. This disclosure is being madepursuant to the Care Everywhere program and may not contain all information available regarding this patient. Last updated 18.[facility] Allergies No known active allergies Medications * Be aware that medications may not be up to date on this document. Alwaysverify current medications with the patient. Cetirizine-Pseu doephedrine (ZYRTEC-D PO) Active Escitalopram Oxalate (LEXAPRO PO) Active fluticasone propionate (FLONASE) 50 MCG/ACT nasal sprayIndication s:Dysfunction of right eustachian tube Stigler 2 sprays into each nostril once daily 1 bottles 8 Active Additional Information Patient not taking.Reported on 11/20/2017 escitalopram (LEXAPRO) 10 MG tablet Take 10 mg by mouth once daily Active Loratadine (CLARITIN PO) Active Family History Medical History Relation Name Comments Cancer - Lung Father Diabetes - Type 2 Father Hyperlipidemia Mother Hypertension Mother Relation Name Status Comments Father Mother Social History Tobacco Use Types Packs/Day Years Used Date Smoking Tobacco: Never Smokeless Tobacco: Never Comments No Sex and Gender Information Value Date Recorded Sex Assigned at Not on file Legal Sex Female 8:11 AM [employer] Gender Identity Not on file Sexual Orientation Not on file Last Filed Vital Signs Vital Sign Reading Time Taken Comments Blood Pressure 122/72 02/14/2020 3:22 PM CDT Pulse 83 02/14/2020 3:22 PM CDT Temperature 37.3 C (99.1 F) 02/14/2020 3:22 PM CDT Respiratory Rate 16 02/14/2020 3:22 PM CDT Oxygen Saturation 98% 02/14/2020 3:22 PM CDT Inhaled Oxygen Concentration - - Weight 85.3 kg (188 lb) 02/14/2020 3:22 PM CDT Height 160 cm (5' 3) 02/14/2020 3:22 PM CDT Body Mass Index 33.3 02/14/2020 3:22 PM CDT Plan of Treatment Health Maintenance Due Date Last Done Comments LIPID TESTING 1983 MAMMOGRAM 1983 HIV SCREENING 1998 HEPATITIS C SCREENING 03/13/2001 DTAP/TDAP/TD VACCINES (1 - Tdap) 2002 HEPATITIS B VACCINE (1 of 3 - 19+ 3-dose series) 2002 HPV VACCINE (1 - 3-dose SCDM series) 2010 COVID-19 VACCINE (1 - 2023-2 5 season) 2024 DEPRESSION SCREENING 06/21/2024 INFLUENZA VACCINE (#1) 2025 ZOSTER VACCINE (1 of 2) 2033 HIB VACCINE Aged Out No longer eligi ble based on patient's age to complete this topic MENINGOCOCCAL (Group B) VACC INE SHARED DECISION-MAKING Aged Out No longer eligibl e based on patient's age to complete this topic MENINGOCOCCAL GROUPS A/C/Y/W VACCINE Aged Out No longer eligible b ased on patient's age to complete this topic PNEUMOCOCCAL VACCINE Aged Out No long er eligible based on patient's age to complete this topic Insurance [facility] Care Teams Thread Spooler Relationship Specialty Start Date End Date Ponce Flores MD PCP - General 11/04/18 Clinton Kennedy MD [address] [place] [address] Family Medicine 11/04/18
--- OUTSIDE RECORDS SUMMARY | 2025-01-13 08:13 | XMS_ITS | Clinical Summary ---
Author Organization [facility] Address [address] [place] [address] Phone Care Team Providers Care Addictions Counselor Name Role Phone Janice Otto MD Primary Care Provider [phone] Allergies No known active allergies Medications No known medications Social History Tobacco Use Types Packs/Day Years Used Date Smoking Tobacco: Never Smokeless Tobacco: Never Alcohol Use Standard Drinks/Week Comments Yes 0 (1 standard drink = 0.6 oz pur e alcohol) socially Comments No Sex and Gender Information Value Date Recorded Sex Assigned at Not on file Legal Sex Female 12:04 AM CDT Gender Identity Not on file Sexual Orientation Not on file Last Filed Vital Signs Vital Sign Reading Time Taken Comments Blood Pressure 143/93 07/24/2019 11:27 AM MACHINE COREMAKER Pulse 72 07/24/2019 12:45 PM MACHINE COREMAKER Temperature 36.6 C (97.8 F) 07/24/2019 11:27 AM MACHINE COREMAKER Respiratory Rate 16 07/24/2019 12:45 PM MACHINE COREMAKER Oxygen Saturation 98% 07/24/2019 12:45 PM MACHINE COREMAKER Inhaled Oxygen Concentration - - Weight 81.6 kg (180 lb) 07/24/2019 11:27 AM MACHINE COREMAKER Height 160 cm (5' 3) 07/24/2019 11:27 AM MACHINE COREMAKER Body Mass Index 31.89 07/24/2019 11:27 AM MACHINE COREMAKER Plan of Treatment Health Maintenance Due Date Last Done Comments Hepatitis C Virus (HCV) Screening 1983 TdaP Immunization 1983 Human Papillomavirus (HPV) Immunization (1 - 3-dose series) 1998 Hepatitis B Immunization (1 of 3 - 19+ 3-dose series) 2002 Pap Smear 2004 Cervical Cancer Screening (CCS) 2013 HPV/Cotest 2013 SARS-COV-2 Immunization ( season) 2024 06/11/2021, 02/06/2021, 10/14/2020 Influenza Immunization (#1) 02/19/20250 01/2019, 03/16/2018 Respiratory Syncytial Virus (RSV) Immunization (Adult) (1 - 1-dose 75+ series) 2058 Meningococcal Immunization (ACWY) Aged Out No longer eligible b ased on patient's age to complete this topic Pneumococcal Immunization Combined Aged Out No longer eligible b ased on patient's age to complete this topic Rotavirus Immunization Aged Out No lo nger eligible based on patient's age to complete this topic Insurance Care Teams Addictions Counselor Relationship Specialty Start Date End Date Janice Otto MD [phone] [place] [address] PCP - General Family Medicine 07/24/19
--- OUTSIDE RECORDS SUMMARY | 2025-01-13 08:13 | XMS_ITS | Patient Health Record ---
Author Organization [facility] Address [address] [facility] [address] [place] [address] Care Team Providers Care Records Management Associate Name Role Phone Mark TILLMAN, Ponce Primary Care Provider UnavailYang Carlin Unavailable [phone] Allergies No Known Allergies Results Component Value Reference Range Notes UDT Reviewed date:03/23/2024 03:03:59 PM Interpretation: Performing Lab: Notes/Report: THC POS 0 - 50 ng/ml Cocaine NEG 0 - 300 ng/ml Amphetamine NEG 0 - 1000 ng/ml Buprenorphine (BUP) NEG 0 - 10 ng/ml Secobarbital (Bar) NEG 0 - 300 ng/ml Oxazepam (BZO) NEG 0 - 300 ng/ml 0-ysvszchtqy-4,3-wicveohe-9,3-diphenylpyrrolidine (TROY P) NEG 0 - 300 ng/ml Methamphetamine (MET) NEG 0 - 1000 ng/ml Methylenedioxymethamphetamine (MDMA) NEG 0 - 500 ng/ml Morphine (MOP 300/EVA2700) NEG 0 - 300 ng/ml Methadone (MTD) NEG 0 - 300 ng/ml Phencyclidine (PCP) NEG 0 - 25 ng/ml Nortriptyline (TCA) NEG 0 - 1000 ng/ml Oxycodone NEG 0 - 300 ng/ml x NEG 0 - 300 ng/ml Reason For Referral No Information Medications Medication SIG (Take, Route, Frequency, Duration) Notes Start Date End Date Status Blanchester 3 1000 MG 1 capsule Orally daily Active Fluticasone Propionate 50 MCG/ACT 1 spray in each nostril Nasal; Duration: 30 days As needed Active Magnesium Active Venlafaxine HCl ER 75 MG TAKE 1 CAPSULE BY MOUTH ONCE DAILY WITH FOOD Oral Once a day; Duration: 90 days Active hydrOXYzine Pamoate 25 MG 1 capsule Orally three times a day; Duration: 90 days As needed Active José Fe 07/10 1-20 MG-MCG TAKE 1 TABLET BY MOUTH ONCE DAILY Oral; Duration: 84 Days Active Venlafaxine HCl ER 37.5 MG 1 capsule wit h food Orally Once a day; Duration: 90 days Active Albuterol Sulfate HFA 108 (90 Base) MCG/ACT INHALE 1 PUFF BY MOUTH EVERY 4 TO 6 HOURS NEEDED FOR SHORTNESS OF BREATH Inhalation; Duration: 34 Days Active Montelukast Sodium 10 MG Oral; Duration: 30 Days Active Social History Tobacco Use: Social History Observation Description Date Details (start date - stop date) Former Smoker 10/19/1997 - 09/29/2014 Sex Assigned At : Social History Observation Description Sex Assigned At Female Tobacco Control (Standard) Question Answer Notes Tobacco use: Former smoker When did you start smoking? 10/19/1997 When did you stop smoking? 09/29/2014 How long has it been since you last smoked? 5-10 years AUDIT-C (Standard) Question Answer Notes Points 4 Did you have a drink contain ing alcohol in the past year? Yes How often did you have six o r more drinks on one occasion in the past year? Less than monthly (1 point) How many drinks did you have on a typical day when you were drinking in the past year? 1 or 2 drinks (0 point) How often did you have a dri nk containing alcohol in the past year? 2 to 3 times a week (3 points) Problems Problem Type SNOMED Code ICD Code Onset Dates Problem Status W/U Status Risk Notes Problem Generalized anxiety disorder (69080482) WILD (generalized anxiety disorder) (F41.1) Active confirmed Problem Nondependent cannabis abuse (085421118) Marijuana use (F12.90) Active confirmed Vital Signs Heart Rate 78 /min 05/19/2024 Temperature 98.3 degrees Fahrenheit 03/23/2024 Blood pressure diastolic 66 mm Hg 05/19/2024 Weight-kg 92.71 kg 05/19/2024 Blood pressure systolic 115 mm Hg 05/19/2024 Weight 204.4 lbs 05/19/2024 Encounters Encounter Location Date Provider Diagnosis [facility] [employer] [facility] [address] [place] [id number] 03/23/2024 Yang Clubb WILD (generalized anxiety disorder) F41.1 and Marijuana use F12.90 [employer] [facility], [facility] [address] [place] [address] 04/20/2024 Yang Clubb WILD (generalized anxiety disorder) F41.1 and Marijuana use F12.90 [employer], [facility] [address] [place] [address] 05/19/2024 Yang Clubb WILD (generalized anxiety disorder) F41.1 and Marijuana use F12.90 [employer] [address] [place] [address] 03/23/2024 Yang Clubb WILD (generalized anxiety disorder) F41.1 [employer] [address] [place] [address] 08/03/2024 Yang Clubb Assessments Encounter Date Diagnosis (ICD Code) Assessment Notes Treatment Notes Treatment Clinical Notes Section Notes 03/23/2024 WILD (generalized anxiety disorder) (ICD-10 - F41.1) 1. Anxiety Disorder - Patient reports increased anxiety and a recent breakdown at work. - Currently on Effexor (venlafaxine) 75 mg daily, but effectiveness seems to have decreased. - Patient rates current anxiety as 10/10. Plan: a. Increase Effexor dose by adding 37.5 mg daily. b. Prescribe hydroxyzine as needed for anxiety, up to three times daily. - Caution patient not to use with marijuana or allergy medications due to potential sedation. c. Follow-up appointment in one month to assess effectiveness of increased Effexor dose and hydroxyzine. 2. ADHD - Patient has a history of ADHD diagnosis since childhood. Plan: a. Continue monitoring during follow-up appointments. 3. Sleep Difficulties - Patient reports difficulty sleeping. Plan: a. Assess impact of increased Effexor dose and hydroxyzine on sleep during follow-up appointment. 4. Liver Enzymes - Patient reports slightly elevated liver enzymes during recent physical in December. - Next liver enzyme test scheduled for July. Plan: a. Monitor liver enzymes during follow-up appointment in July. b. If liver enzymes remain elevated, consider discontinuing hydroxyzine. 5. Substance Use - Patient reports occasional marijuana use (edibles) once a month and alcohol consumption on weekends (two days a week). Plan: a. Caution patient about potential interactions with hydroxyzine and sedation. b. Continue monitoring during follow-up appointments. 6. Depression - Patient rates current depression as 2/10. Plan: a. Continue monitoring during follow-up appointments. 03/23/2024 Marijuana use (ICD-10 - F12.90) 1. Anxiety Disorder - Patient reports increased anxiety and a recent breakdown at work. - Currently on Effexor (venlafaxine) 75 mg daily, but effectiveness seems to have decreased. - Patient rates current anxiety as 10/10. Plan: a. Increase Effexor dose by adding 37.5 mg daily. b. Prescribe hydroxyzine as needed for anxiety, up to three times daily. - Caution patient not to use with marijuana or allergy medications due to potential sedation. c. Follow-up appointment in one month to assess effectiveness of increased Effexor dose and hydroxyzine. 2. ADHD - Patient has a history of ADHD diagnosis since childhood. Plan: a. Continue monitoring during follow-up appointments. 3. Sleep Difficulties - Patient reports difficulty sleeping. Plan: a. Assess impact of increased Effexor dose and hydroxyzine on sleep during follow-up appointment. 4. Liver Enzymes - Patient reports slightly elevated liver enzymes during recent physical in December. - Next liver enzyme test scheduled for July. Plan: a. Monitor liver enzymes during follow-up appointment in July. b. If liver enzymes remain elevated, consider discontinuing hydroxyzine. 5. Substance Use - Patient reports occasional marijuana use (edibles) once a month and alcohol consumption on weekends (two days a week). Plan: a. Caution patient about potential interactions with hydroxyzine and sedation. b. Continue monitoring during follow-up appointments. 6. Depression - Patient rates current depression as 2/10. Plan: a. Continue monitoring during follow-up appointments. 03/23/2024 IWLD (generalized anxiety disorder) (ICD-10 - F41.1) 04/20/2024 WILD (generalized anxiety disorder) (ICD-10 - F41.1) 1. Anxiety Disorder - She reports anxiety levels at 7 out of 10, exacerbated by work stressors. - WILD score decreased from 14 to 6 since last visit. - Continue Effexor 75 mg and hydroxyzine as prescribed. - Monitor anxiety levels and medication response. - Follow-up in 4 weeks to reassess anxiety and treatment effectiveness. 2. Depression - She reports depression levels at 4 out of 10. - PHQ-9 score increased from 6 to 10 since last visit. - Continue monitoring depression levels and response to Effexor. - Follow-up in 4 weeks to reassess depression and treatment effectiveness. 3. Weight Gain - She reports 10-pound weight gain since December, current weight 202 pounds. - Weight gain not related to medication changes. - Encourage discussion with primary care provider about weight loss medications. - Monitor weight during follow-up appointments. - Follow-up in 4 weeks to reassess weight and overall well-being. 4. Sleep - She reports good sleep quality. - Continue monitoring sleep quality during follow-up appointments. 5. ADHD (historical) - No current concerns reported. - Continue monitoring for ADHD-related concerns during follow-up appointments. 6. Additional Notes - She denies hallucinations, delusions, suicidal thoughts, or thoughts of harming others. - She reports some difficulty concentrating. - Disassociation symptoms have improved. 7. Follow-Up - Schedule follow-up appointment in 4 weeks to reassess all conditions and treatment effectiveness. 8. marijuna use discussed the benefits of quitting. discussed the risks of marijuana use with mental illness and effects on medication metabolism. 04/20/2024 Marijuana use (ICD-10 - F12.90) 1. Anxiety Disorder - She reports anxiety levels at 7 out of 10, exacerbated by work stressors. - WILD score decreased from 14 to 6 since last visit. - Continue Effexor 75 mg and hydroxyzine as prescribed. - Monitor anxiety levels and medication response. - Follow-up in 4 weeks to reassess anxiety and treatment effectiveness. 2. Depression - She reports depression levels at 4 out of 10. - PHQ-9 score increased from 6 to 10 since last visit. - Continue monitoring depression levels and response to Effexor. - Follow-up in 4 weeks to reassess depression and treatment effectiveness. 3. Weight Gain - She reports 10-pound weight gain since December, current weight 202 pounds. - Weight gain not related to medication changes. - Encourage discussion with primary care provider about weight loss medications. - Monitor weight during follow-up appointments. - Follow-up in 4 weeks to reassess weight and overall well-being. 4. Sleep - She reports good sleep quality. - Continue monitoring sleep quality during follow-up appointments. 5. ADHD (historical) - No current concerns reported. - Continue monitoring for ADHD-related concerns during follow-up appointments. 6. Additional Notes - She denies hallucinations, delusions, suicidal thoughts, or thoughts of harming others. - She reports some difficulty concentrating. - Disassociation symptoms have improved. 7. Follow-Up - Schedule follow-up appointment in 4 weeks to reassess all conditions and treatment effectiveness. 8. marijuna use discussed the benefits of quitting. discussed the risks of marijuana use with mental illness and effects on medication metabolism. 05/19/2024 WILD (generalized anxiety disorder) (ICD-10 - F41.1) Assessment and plan reviewed with patient Call for problems with medication, side effects or need for dosage change Compliance issues reviewed Discussed the risks/benefits of this medication Discussed medication side effects Return if symptoms worsen Treatment options reviewed. discussed that it can take weeks to see full therapeutic effects of psychotropic medications. discussed when to seek emergency services. discussed crisis prevention hotline 988. 1. depression - PHQ-9 score: 11 - Patient reports increased anxiety and depressive symptoms, likely related to holiday season and family issues. - Parents leaving for [place] as winter birds, contributing to emotional difficulties. - Plan: a. Continue venlafaxine at current dose (75 mg + 37.5 mg) and reassess after holiday season. b. Encourage maintaining open communication with family members and setting boundaries during discussions. c. Schedule follow-up appointment in 3 months or sooner if needed. 2. Generalized Anxiety Disorder (WILD) - WILD-7 score: 12 (increased from 6 at previous visit) - Patient attributes increase in anxiety to holiday season and family issues. - Plan: a. Continue hydroxyzine as needed for situational anxiety (1-2 tablets). b. Encourage practicing stress management techniques (deep breathing exercises, mindfulness meditation). 3. Insomnia - Patient reports difficulty sleeping, likely due to 's work schedule and magnesium supplementation. - Sleeping only a couple of hours per night. - Plan: a. Encourage maintaining good sleep hygiene (consistent bedtime routine, sleep-conducive environment). b. Consider recommending OTC melatonin or other sleep aids if sleep quality doesn't improve. 4. Medication Management - Current medications: venlafaxine, Blanchester-3s, fluconazole, nasal spray, albuterol, Singulair, and hydroxyzine. - Plan: a. Continue current medication regimen. b. Provide 3-month supply of psychotropic medications. c. Instruct patient to call before due date for refills. d. Monitor for adverse effects or interactions during follow-ups. 5. Substance Use - Patient reports occasional marijuana use during weekends and holidays. - Plan: a. Encourage mindfulness of potential impact on mental health and overall well-being. b. Assess substance use during follow-up appointments and provide support as needed. 6. Safety Assessment - Patient denies thoughts of suicide, self-harm, or hurting others. - Plan: a. Continue monitoring mental health status during follow-up appointments. b. Encourage reaching out for support if experiencing thoughts of self-harm or harm to others. 05/19/2024 Marijuana use (ICD-10 - F12.90) patient reports continued marijuana use on the weekends discussed risks of marijuana use ands it's effects on mental illness. discussed medication metabolism 1. depression - PHQ-9 score: 11 - Patient reports increased anxiety and depressive symptoms, likely related to holiday season and family issues. - Parents leaving for [place] as winter birds, contributing to emotional difficulties. - Plan: a. Continue venlafaxine at current dose (75 mg + 37.5 mg) and reassess after holiday season. b. Encourage maintaining open communication with family members and setting boundaries during discussions. c. Schedule follow-up appointment in 3 months or sooner if needed. 2. Generalized Anxiety Disorder (WILD) - WILD-7 score: 12 (increased from 6 at previous visit) - Patient attributes increase in anxiety to holiday season and family issues. - Plan: a. Continue hydroxyzine as needed for situational anxiety (1-2 tablets). b. Encourage practicing stress management techniques (deep breathing exercises, mindfulness meditation). 3. Insomnia - Patient reports difficulty sleeping, likely due to 's work schedule and magnesium supplementation. - Sleeping only a couple of hours per night. - Plan: a. Encourage maintaining good sleep hygiene (consistent bedtime routine, sleep-conducive environment). b. Consider recommending OTC melatonin or other sleep aids if sleep quality doesn't improve. 4. Medication Management - Current medications: venlafaxine, Blanchester-3s, fluconazole, nasal spray, albuterol, Singulair, and hydroxyzine. - Plan: a. Continue current medication regimen. b. Provide 3-month supply of psychotropic medications. c. Instruct patient to call before due date for refills. d. Monitor for adverse effects or interactions during follow-ups. 5. Substance Use - Patient reports occasional marijuana use during weekends and holidays. - Plan: a. Encourage mindfulness of potential impact on mental health and overall well-being. b. Assess substance use during follow-up appointments and provide support as needed. 6. Safety Assessment - Patient denies thoughts of suicide, self-harm, or hurting others. - Plan: a. Continue monitoring mental health status during follow-up appointments. b. Encourage reaching out for support if experiencing thoughts of self-harm or harm to others. 03/23/2024 Other Learning About Depression Screening material was printed Assessment and plan reviewed with patient Call for problems with medication, side effects or need for dosage change Compliance issues reviewed Discussed the risks/benefits of this medication Discussed medication side effects Return if symptoms worsen Treatment options reviewed. discussed that it can take weeks to see full therapeutic effects of psychotropic medications. discussed when to seek emergency services. discussed crisis prevention hotline 988. , Hydroxyzine Oral Capsule (HYDROXYZINE PAMOATE - ORAL) material was published 1. Anxiety Disorder - Patient reports increased anxiety and a recent breakdown at work. - Currently on Effexor (venlafaxine) 75 mg daily, but effectiveness seems to have decreased. - Patient rates current anxiety as 10/10. Plan: a. Increase Effexor dose by adding 37.5 mg daily. b. Prescribe hydroxyzine as needed for anxiety, up to three times daily. - Caution patient not to use with marijuana or allergy medications due to potential sedation. c. Follow-up appointment in one month to assess effectiveness of increased Effexor dose and hydroxyzine. 2. ADHD - Patient has a history of ADHD diagnosis since childhood. Plan: a. Continue monitoring during follow-up appointments. 3. Sleep Difficulties - Patient reports difficulty sleeping. Plan: a. Assess impact of increased Effexor dose and hydroxyzine on sleep during follow-up appointment. 4. Liver Enzymes - Patient reports slightly elevated liver enzymes during recent physical in December. - Next liver enzyme test scheduled for July. Plan: a. Monitor liver enzymes during follow-up appointment in July. b. If liver enzymes remain elevated, consider discontinuing hydroxyzine. 5. Substance Use - Patient reports occasional marijuana use (edibles) once a month and alcohol consumption on weekends (two days a week). Plan: a. Caution patient about potential interactions with hydroxyzine and sedation. b. Continue monitoring during follow-up appointments. 6. Depression - Patient rates current depression as /10. Plan: a. Continue monitoring during follow-up appointments. Plan Of Treatment No Information Insurance Providers Payer Name Payer Address Payer Phone Subscriber Number Group Number Insured Name Patient Relationship to Insured Coverage Start Date Coverage End Date [employer] [id number] [place] [phone] [id number] ARLINE ROMERO Self - patient is the insured Medical (General) History Medical History History ICD Code Past Psychiatric History: Anxiety Disord er,Major Depressive Episode abdominal aortic aneurysm: No atrial fibrillation: No chronic fatigue syndrome: No essential tremor: No hyperlipidemia: No hypertension: No Parkinson's disease: No restless leg syndrome: No stroke: No subdural hematoma: No type 1 diabetes mellitus: No type 2 diabetes mellitus: No vitamin B12 deficiency: No vitamin D deficiency: No asthma hyperlipidemia Past Psychiatric History: Anxiety Disord er undefined Surgical History Surgery Date(Month/Year) tonsillectomy from left breast lumpectomy pleurodesis Hospitalization History Reason Date(Month/Year) surgery during pleurodesis
--- OUTSIDE RECORDS SUMMARY | 2025-01-13 08:13 | XMS_ITS | Patient Health Record ---
Author Organization [facility] [employer] [place] ([address]) Address [address] [place] [address] Care Team Providers Care Associate Professor Plant Pathology Name Role Phone Mark Ponce Primary Care Provider Diamond Veras Unavailable [phone] Ton Cedeño Unavailable [phone] Allergies No Known Allergies Reason For Referral No Information Medications Medication SIG (Take, Route, Frequency, Duration) Notes Start Date End Date Status José 24 FE 1-20 MG-MCG(24) 1 tablet Orally Once a day Active Cetirizine HCl 10 MG 1 tab(s) orally once a day; Duration: 30 days 09/23/2023 Active Fluticasone Propionate 50 MCG/ACT 2 spray(s) in each nostril once a day; Duration: 30 days 09/23/2023 Active Kaitlin Allergy 60 MG 1 tab(s) orally 2 times a day Not-Taking Breo Ellipta 100 MCG-25 MCG/INH 1 PUFF(S) INHALED ONCE A DAY; Duration: 30 DAYS *Please review and pick correct strength-formula tion from Urbitaan options. If intended option is not shown, discontinue and re-order from Quick Search* 09/23/2023 Not-Taking ALBUTEROL 90 mcg/inh 2 puff(s) inhaled every 6 hours Active Montelukast Sodium 10 MG 1 tab(s) orally once a day; Duration: 30 days Active MONTELUKAST 10 mg 1 tab(s) orally once a day; Duration: 30 days Active Slynd 4 MG 1 tab(s) orally once a day Not-Taking NASAL WASHES N/A as directed intranasally as needed; Duration: 30 days Active EpiPen 2-Ben 0.3 mg as directed intramuscularly once; Duration: 30 days Active Rosuvastatin Calcium 5 MG 1 tab(s) orally once a day Not-Taking Effexor XR 150 MG 1 cap(s) orally once a day Active CETIRIZINE 10 mg 1 tab(s) orally once a day; Duration: 30 days Active Albuterol Sulfate HFA 108 (90 Base) MCG/ACT 2 puff(s) inhaled every 6 hours Active FLUTICASONE NASAL 50 mcg/inh 2 spray(s) in each nostril once a day; Duration: 30 days Active Flonase Allergy Relief 50 MCG/ACT 1 spray(s) in each nostril once a day Not-Taking EPIPEN 2-BEN 0.3 mg as directed intramuscularly once; Duration: 30 days Active Social History Tobacco Use: Social History Observation Description Date Details (start date - stop date) Former Smoker NA - NA Smoking Smart Form: Question Answer Notes Are you a: former smoker When did you stop smoking? 06/21/2014 Tobacco Control (Standard) Question Answer Notes Tobacco use: Former smoker Problems Problem Type SNOMED Code ICD Code Onset Dates Problem Status W/U Status Risk Notes Problem Shortness of breath (921807564) Shortness of breath (R06.02) Active confirmed Problem Chronic allergic conjunctivitis (20217617) Other chronic allergic conjunctivitis (H10.45) Active confirmed Problem Allergic rhinitis caused by pollen (disorder) (09976190) Allergic rhinitis due to pollen (J30.1) Active confirmed Problem Allergic rhinitis (00731342) Other allergic rhinitis (J30.89) Active confirmed Problem Chronic rhinitis (47744918) Chronic rhinitis (J31.0) Active confirmed Problem Uncomplicated mild persistent asthma (218298364) Mild persistent asthma, uncomplicated (J45.30) Active confirmed Problem Uncomplicated moderate persistent asthma (425312369) Moderate persistent asthma, uncomplicated (J45.40) Active confirmed Problem Uncomplicated severe persistent asthma (279599970) Severe persistent asthma, uncomplicated (J45.50) Active confirmed Problem Allergic rhinitis caused by animal hair and dander (285500766765018) Allergic rhinitis due to animal (cat) (dog) hair and dander (J30.81) Active confirmed Problem Pruritus (427115228) Pruritus, unspecified (L29.9) Active confirmed Vital Signs Respiratory Rate 17 /min 07/27/2024 Oximetry 96 % 07/27/2024 Blood pressure diastolic 84 mm Hg 07/27/2024 Height 64 in 07/27/2024 Blood pressure systolic 121 mm Hg 07/27/2024 Weight 204 lbs 07/27/2024 BMI 35.01 kg/m2 07/27/2024 Encounters Encounter Location Date Provider Diagnosis [facility] [address] [place] [phone] 04/18/2024 Diamond Conklin [facility] [address] [place] [phone] 04/27/2024 Diamond Conklin [facility] [address] [place] [phone] 06/19/2024 Diamond Conklin [place] [address] [place] [phone] 08/17/2024 Diamondemily Conklin [place] [address] [address] [place] [phone] 11/16/2024 Diamond Conklin Allergic rhinitis du e to pollen J30.1 [facility] [address] [place] [phone] 11/16/2024 Diamond Conklin [facility] [address] [place] [phone] 07/27/2024 Diamond Young Allergic rhinitis du e to pollen J30.1 ; Allergic rhinitis due to animal (cat) (dog) hair and dander J30.81 ; Other allergic rhinitis J30.89 ; Other chronic allergic conjunctivitis H10.45 ; Shortness of breath R06.02 and Pruritus, unspecified L29.9 [facility] [address] [place] [phone] 08/03/2024 Ton Cedeño Allergic rhinitis du e to pollen J30.1 ; Allergic rhinitis due to animal (cat) (dog) hair and dander J30.81 ; Other allergic rhinitis J30.89 and Other chronic allergic conjunctivitis H10.45 [facility] [address] [place] [phone] 08/24/2024 Ton Cedeño Allergic rhinitis du e to pollen J30.1 ; Allergic rhinitis due to animal (cat) (dog) hair and dander J30.81 ; Other allergic rhinitis J30.89 and Other chronic allergic conjunctivitis H10.45 [facility] [address] [place] [phone] 08/31/2024 Ton Cedeño Allergic rhinitis du e to pollen J30.1 ; Allergic rhinitis due to animal (cat) (dog) hair and dander J30.81 ; Other allergic rhinitis J30.89 and Other chronic allergic conjunctivitis H10.45 [facility] [address] [place] [phone] 09/07/2024 Ton Cedeño Allergic rhinitis du e to pollen J30.1 ; Allergic rhinitis due to animal (cat) (dog) hair and dander J30.81 ; Other allergic rhinitis J30.89 and Other chronic allergic conjunctivitis H10.45 [facility] [address] [place] [phone] 10/05/2024 Ton Cedeño Allergic rhinitis du e to pollen J30.1 ; Allergic rhinitis due to animal (cat) (dog) hair and dander J30.81 ; Other allergic rhinitis J30.89 and Other chronic allergic conjunctivitis H10.45 [facility] [address] [place] [phone] 11/02/2024 Ton Cedeño Allergic rhinitis du e to pollen J30.1 ; Allergic rhinitis due to animal (cat) (dog) hair and dander J30.81 ; Other allergic rhinitis J30.89 and Other chronic allergic conjunctivitis H10.45 [facility] [address] [place] [phone] 11/30/2024 Ton Cedeño Allergic rhinitis du e to pollen J30.1 ; Allergic rhinitis due to animal (cat) (dog) hair and dander J30.81 ; Other allergic rhinitis J30.89 and Other chronic allergic conjunctivitis H10.45 [facility] [address] [place] [id number] 12/28/2024 Ton Cedeño Allergic rhinitis du e to pollen J30.1 ; Allergic rhinitis due to animal (cat) (dog) hair and dander J30.81 ; Other allergic rhinitis J30.89 and Other chronic allergic conjunctivitis H10.45 [facility] [address] [place] [phone] 01/20/2024 Ton Cedeño Allergic rhinitis du e to pollen J30.1 ; Allergic rhinitis due to animal (cat) (dog) hair and dander J30.81 ; Other allergic rhinitis J30.89 and Other chronic allergic conjunctivitis H10.45 [facility] [address] [place] [phone] 01/27/2024 Ton Cedeño Allergic rhinitis du e to pollen J30.1 ; Allergic rhinitis due to animal (cat) (dog) hair and dander J30.81 ; Other allergic rhinitis J30.89 and Other chronic allergic conjunctivitis H10.45 [facility] [address] [place] [phone] 02/03/2024 Ton Cedeño Allergic rhinitis du e to pollen J30.1 ; Allergic rhinitis due to animal (cat) (dog) hair and dander J30.81 ; Other allergic rhinitis J30.89 and Other chronic allergic conjunctivitis H10.45 [facility] [address] [place] [id number] 02/10/2024 Ton Cedeño Allergic rhinitis du e to pollen J30.1 ; Allergic rhinitis due to animal (cat) (dog) hair and dander J30.81 ; Other allergic rhinitis J30.89 and Other chronic allergic conjunctivitis H10.45 [facility] [address] [place] [phone] 02/17/2024 Ton Cedeño Allergic rhinitis du e to pollen J30.1 ; Allergic rhinitis due to animal (cat) (dog) hair and dander J30.81 ; Other allergic rhinitis J30.89 and Other chronic allergic conjunctivitis H10.45 [facility] [address] [place] [phone] 02/24/2024 Ton Cedeño Allergic rhinitis du e to pollen J30.1 ; Allergic rhinitis due to animal (cat) (dog) hair and dander J30.81 ; Other allergic rhinitis J30.89 and Other chronic allergic conjunctivitis H10.45 [facility] [address] [place] [phone] 03/08/2024 Ton Cedeño Allergic rhinitis du e to pollen J30.1 ; Allergic rhinitis due to animal (cat) (dog) hair and dander J30.81 ; Other allergic rhinitis J30.89 and Other chronic allergic conjunctivitis H10.45 [facility] [address] [place] [phone] 03/15/2024 Ton Cedeño Allergic rhinitis du e to pollen J30.1 ; Allergic rhinitis due to animal (cat) (dog) hair and dander J30.81 ; Other allergic rhinitis J30.89 and Other chronic allergic conjunctivitis H10.45 [facility] [address] [place] [phone] 03/22/2024 Ton Cedeño Allergic rhinitis du e to pollen J30.1 ; Allergic rhinitis due to animal (cat) (dog) hair and dander J30.81 ; Other allergic rhinitis J30.89 and Other chronic allergic conjunctivitis H10.45 [facility] [address] [place] [phone] 04/03/2024 Ton Cedeño Allergic rhinitis du e to pollen J30.1 ; Allergic rhinitis due to animal (cat) (dog) hair and dander J30.81 ; Other allergic rhinitis J30.89 and Other chronic allergic conjunctivitis H10.45 [facility] [address] [place] [phone] 04/13/2024 Ton Cedeño Allergic rhinitis du e to pollen J30.1 ; Allergic rhinitis due to animal (cat) (dog) hair and dander J30.81 ; Other allergic rhinitis J30.89 and Other chronic allergic conjunctivitis H10.45 [facility] [address] [place] [phone] 04/19/2024 Ton Cedeño Allergic rhinitis du e to pollen J30.1 ; Allergic rhinitis due to animal (cat) (dog) hair and dander J30.81 ; Other allergic rhinitis J30.89 and Other chronic allergic conjunctivitis H10.45 [facility] [address] [place] [phone] 04/27/2024 Ton Cedeño Allergic rhinitis du e to pollen J30.1 ; Allergic rhinitis due to animal (cat) (dog) hair and dander J30.81 ; Other allergic rhinitis J30.89 and Other chronic allergic conjunctivitis H10.45 [facility] [address] [place] [phone] 05/04/2024 Ton Cedeño Allergic rhinitis du e to pollen J30.1 ; Allergic rhinitis due to animal (cat) (dog) hair and dander J30.81 ; Other allergic rhinitis J30.89 and Other chronic allergic conjunctivitis H10.45 [facility] [address] [place] [phone] 05/17/2024 Ton Cedeño Allergic rhinitis du e to pollen J30.1 ; Allergic rhinitis due to animal (cat) (dog) hair and dander J30.81 ; Other allergic rhinitis J30.89 and Other chronic allergic conjunctivitis H10.45 [facility] [address] [place] [phone] 05/31/2024 Ton Cedeño Allergic rhinitis du e to pollen J30.1 ; Allergic rhinitis due to animal (cat) (dog) hair and dander J30.81 ; Other allergic rhinitis J30.89 and Other chronic allergic conjunctivitis H10.45 [facility] [address] [place] [id number] 06/08/2024 Ton Cedeño Allergic rhinitis du e to pollen J30.1 ; Allergic rhinitis due to animal (cat) (dog) hair and dander J30.81 ; Other allergic rhinitis J30.89 and Other chronic allergic conjunctivitis H10.45 [facility] [address] [place] [phone] 06/19/2024 Ton Cedeño Allergic rhinitis du e to pollen J30.1 ; Allergic rhinitis due to animal (cat) (dog) hair and dander J30.81 ; Other allergic rhinitis J30.89 and Other chronic allergic conjunctivitis H10.45 [facility] [address] [place] [phone] 06/29/2024 Ton Cedeño Allergic rhinitis du e to pollen J30.1 ; Allergic rhinitis due to animal (cat) (dog) hair and dander J30.81 ; Other allergic rhinitis J30.89 and Other chronic allergic conjunctivitis H10.45 [facility] [address] [place] [phone] 07/06/2024 Ton Cedeño Allergic rhinitis du e to pollen J30.1 ; Allergic rhinitis due to animal (cat) (dog) hair and dander J30.81 ; Other allergic rhinitis J30.89 and Other chronic allergic conjunctivitis H10.45 [facility] [address] [place] [phone] 07/20/2024 Ton Cedeño Allergic rhinitis du e to pollen J30.1 ; Allergic rhinitis due to animal (cat) (dog) hair and dander J30.81 ; Other allergic rhinitis J30.89 and Other chronic allergic conjunctivitis H10.45 [facility] [address] [place] [phone] 03/22/2024 Ton Cedeño Allergic rhinitis du e to pollen J30.1 ; Allergic rhinitis due to animal (cat) (dog) hair and dander J30.81 ; Other allergic rhinitis J30.89 and Other chronic allergic conjunctivitis H10.45 [facility] [address] [place] [id number] 05/25/2024 Ton Cedeño Allergic rhinitis du e to pollen J30.1 ; Allergic rhinitis due to animal (cat) (dog) hair and dander J30.81 ; Other allergic rhinitis J30.89 and Other chronic allergic conjunctivitis H10.45 Assessments Encounter Date Diagnosis (ICD Code) Assessment Notes Treatment Notes Treatment Clinical Notes Section Notes 01/20/2024 Allergic rhinitis due to pollen (ICD-10 - J30.1) 01/27/2024 Allergic rhinitis due to pollen (ICD-10 - J30.1) 02/03/2024 Allergic rhinitis due to pollen (ICD-10 - J30.1) 03/22/2024 Allergic rhinitis due to pollen (ICD-10 - J30.1) 04/03/2024 Allergic rhinitis due to pollen (ICD-10 - J30.1) 05/17/2024 Allergic rhinitis due to pollen (ICD-10 - J30.1) 07/20/2024 Allergic rhinitis due to pollen (ICD-10 - J30.1) 07/27/2024 Allergic rhinitis due to pollen (ICD-10 - J30.1) Chaya clearly suffers from atopic disease based upon our skin testing and clinical history. Accordingly, we have introduced a new, aggressive medication regimen, discussed nasal washes and allergy-specific avoidance measures.She continues immunotherapy,waldemar mckeon seeing a benefit. Dosing today again tolerated w/o reaction. -AIE on hand, continue to carry after dosing 2 hrs after dosing -not due for SCIT today, spacing out to Q2 weeks. Discussed increasing frequency in peak seasons PRN -follow-up in 6 months 07/27/2024 Allergic rhinitis due to animal (cat) (dog) hair and dander (ICD-10 - J30.81) Follow allergen avoidance, meds and consider SCIT as an adjunctive treatment to current regimen 08/03/2024 Allergic rhinitis due to pollen (ICD-10 - J30.1) 11/16/2024 Allergic rhinitis due to pollen (ICD-10 - J30.1) 09/07/2024 Allergic rhinitis due to pollen (ICD-10 - J30.1) 08/31/2024 Allergic rhinitis due to pollen (ICD-10 - J30.1) 08/24/2024 Allergic rhinitis due to pollen (ICD-10 - J30.1) 07/06/2024 Allergic rhinitis due to pollen (ICD-10 - J30.1) 06/29/2024 Allergic rhinitis due to pollen (ICD-10 - J30.1) 06/19/2024 Allergic rhinitis due to pollen (ICD-10 - J30.1) 06/08/2024 Allergic rhinitis due to pollen (ICD-10 - J30.1) 05/31/2024 Allergic rhinitis due to pollen (ICD-10 - J30.1) 05/25/2024 Allergic rhinitis due to pollen (ICD-10 - J30.1) 05/04/2024 Allergic rhinitis due to pollen (ICD-10 - J30.1) 04/27/2024 Allergic rhinitis due to pollen (ICD-10 - J30.1) 04/19/2024 Allergic rhinitis due to pollen (ICD-10 - J30.1) 04/13/2024 Allergic rhinitis due to pollen (ICD-10 - J30.1) 03/22/2024 Allergic rhinitis due to pollen (ICD-10 - J30.1) 03/15/2024 Allergic rhinitis due to pollen (ICD-10 - J30.1) 03/08/2024 Allergic rhinitis due to pollen (ICD-10 - J30.1) 02/24/2024 Allergic rhinitis due to pollen (ICD-10 - J30.1) 02/17/2024 Allergic rhinitis due to pollen (ICD-10 - J30.1) 02/10/2024 Allergic rhinitis due to pollen (ICD-10 - J30.1) 11/30/2024 Allergic rhinitis due to pollen (ICD-10 - J30.1) 11/02/2024 Allergic rhinitis due to pollen (ICD-10 - J30.1) 10/05/2024 Allergic rhinitis due to pollen (ICD-10 - J30.1) 12/28/2024 Allergic rhinitis due to pollen (ICD-10 - J30.1) 12/28/2024 Allergic rhinitis due to animal (cat) (dog) hair and dander (ICD-10 - J30.81) 10/05/2024 Allergic rhinitis due to animal (cat) (dog) hair and dander (ICD-10 - J30.81) 11/02/2024 Allergic rhinitis due to animal (cat) (dog) hair and dander (ICD-10 - J30.81) 11/30/2024 Allergic rhinitis due to animal (cat) (dog) hair and dander (ICD-10 - J30.81) 02/10/2024 Allergic rhinitis due to animal (cat) (dog) hair and dander (ICD-10 - J30.81) 02/17/2024 Allergic rhinitis due to animal (cat) (dog) hair and dander (ICD-10 - J30.81) 02/24/2024 Allergic rhinitis due to animal (cat) (dog) hair and dander (ICD-10 - J30.81) 03/08/2024 Allergic rhinitis due to animal (cat) (dog) hair and dander (ICD-10 - J30.81) 03/15/2024 Allergic rhinitis due to animal (cat) (dog) hair and dander (ICD-10 - J30.81) 03/22/2024 Allergic rhinitis due to animal (cat) (dog) hair and dander (ICD-10 - J30.81) 04/13/2024 Allergic rhinitis due to animal (cat) (dog) hair and dander (ICD-10 - J30.81) 04/19/2024 Allergic rhinitis due to animal (cat) (dog) hair and dander (ICD-10 - J30.81) 04/27/2024 Allergic rhinitis due to animal (cat) (dog) hair and dander (ICD-10 - J30.81) 05/04/2024 Allergic rhinitis due to animal (cat) (dog) hair and dander (ICD-10 - J30.81) 05/25/2024 Allergic rhinitis due to animal (cat) (dog) hair and dander (ICD-10 - J30.81) 05/31/2024 Allergic rhinitis due to animal (cat) (dog) hair and dander (ICD-10 - J30.81) 06/08/2024 Allergic rhinitis due to animal (cat) (dog) hair and dander (ICD-10 - J30.81) 06/19/2024 Allergic rhinitis due to animal (cat) (dog) hair and dander (ICD-10 - J30.81) 06/29/2024 Allergic rhinitis due to animal (cat) (dog) hair and dander (ICD-10 - J30.81) 07/06/2024 Allergic rhinitis due to animal (cat) (dog) hair and dander (ICD-10 - J30.81) 08/24/2024 Allergic rhinitis due to animal (cat) (dog) hair and dander (ICD-10 - J30.81) 08/31/2024 Allergic rhinitis due to animal (cat) (dog) hair and dander (ICD-10 - J30.81) 09/07/2024 Allergic rhinitis due to animal (cat) (dog) hair and dander (ICD-10 - J30.81) 08/03/2024 Allergic rhinitis due to animal (cat) (dog) hair and dander (ICD-10 - J30.81) 07/27/2024 Other allergic rhinitis (ICD-10 - J30.89) Follow allergen avoidance, meds and consider SCIT as an adjunctive treatment to current regimen 07/20/2024 Allergic rhinitis due to animal (cat) (dog) hair and dander (ICD-10 - J30.81) 05/17/2024 Allergic rhinitis due to animal (cat) (dog) hair and dander (ICD-10 - J30.81) 04/03/2024 Allergic rhinitis due to animal (cat) (dog) hair and dander (ICD-10 - J30.81) 03/22/2024 Allergic rhinitis due to animal (cat) (dog) hair and dander (ICD-10 - J30.81) 02/03/2024 Allergic rhinitis due to animal (cat) (dog) hair and dander (ICD-10 - J30.81) 01/27/2024 Allergic rhinitis due to animal (cat) (dog) hair and dander (ICD-10 - J30.81) 01/20/2024 Allergic rhinitis due to animal (cat) (dog) hair and dander (ICD-10 - J30.81) 01/20/2024 Other allergic rhinitis (ICD-10 - J30.89) 01/27/2024 Other allergic rhinitis (ICD-10 - J30.89) 02/03/2024 Other allergic rhinitis (ICD-10 - J30.89) 03/22/2024 Other allergic rhinitis (ICD-10 - J30.89) 04/03/2024 Other allergic rhinitis (ICD-10 - J30.89) 05/17/2024 Other allergic rhinitis (ICD-10 - J30.89) 07/20/2024 Other allergic rhinitis (ICD-10 - J30.89) 07/27/2024 Other chronic allergic conjunctivitis (ICD-10 - H10.45) Given ocular signs and symptoms I encouraged allergy avoidance measures and meds as above. If symptoms persist, consider adding additional medications including intraocular antihistamine/mas t cell stabilizer, PRN and consider SCIT as an adjunctive measure 08/03/2024 Other allergic rhinitis (ICD-10 - J30.89) 09/07/2024 Other allergic rhinitis (ICD-10 - J30.89) 08/31/2024 Other allergic rhinitis (ICD-10 - J30.89) 08/24/2024 Other allergic rhinitis (ICD-10 - J30.89) 07/06/2024 Other allergic rhinitis (ICD-10 - J30.89) 06/29/2024 Other allergic rhinitis (ICD-10 - J30.89) 06/19/2024 Other allergic rhinitis (ICD-10 - J30.89) 06/08/2024 Other allergic rhinitis (ICD-10 - J30.89) 05/31/2024 Other allergic rhinitis (ICD-10 - J30.89) 05/25/2024 Other allergic rhinitis (ICD-10 - J30.89) 05/04/2024 Other allergic rhinitis (ICD-10 - J30.89) 04/27/2024 Other allergic rhinitis (ICD-10 - J30.89) 04/19/2024 Other allergic rhinitis (ICD-10 - J30.89) 04/13/2024 Other allergic rhinitis (ICD-10 - J30.89) 03/22/2024 Other allergic rhinitis (ICD-10 - J30.89) 03/15/2024 Other allergic rhinitis (ICD-10 - J30.89) 03/08/2024 Other allergic rhinitis (ICD-10 - J30.89) 02/24/2024 Other allergic rhinitis (ICD-10 - J30.89) 02/17/2024 Other allergic rhinitis (ICD-10 - J30.89) 02/10/2024 Other allergic rhinitis (ICD-10 - J30.89) 11/30/2024 Other allergic rhinitis (ICD-10 - J30.89) 11/02/2024 Other allergic rhinitis (ICD-10 - J30.89) 10/05/2024 Other allergic rhinitis (ICD-10 - J30.89) 12/28/2024 Other allergic rhinitis (ICD-10 - J30.89) 12/28/2024 Other chronic allergic conjunctivitis (ICD-10 - H10.45) 10/05/2024 Other chronic allergic conjunctivitis (ICD-10 - H10.45) 11/02/2024 Other chronic allergic conjunctivitis (ICD-10 - H10.45) 11/30/2024 Other chronic allergic conjunctivitis (ICD-10 - H10.45) 08/03/2024 Other chronic allergic conjunctivitis (ICD-10 - H10.45) 02/10/2024 Other chronic allergic conjunctivitis (ICD-10 - H10.45) 02/17/2024 Other chronic allergic conjunctivitis (ICD-10 - H10.45) 02/24/2024 Other chronic allergic conjunctivitis (ICD-10 - H10.45) 03/08/2024 Other chronic allergic conjunctivitis (ICD-10 - H10.45) 03/15/2024 Other chronic allergic conjunctivitis (ICD-10 - H10.45) 03/22/2024 Other chronic allergic conjunctivitis (ICD-10 - H10.45) 04/13/2024 Other chronic allergic conjunctivitis (ICD-10 - H10.45) 04/19/2024 Other chronic allergic conjunctivitis (ICD-10 - H10.45) 04/27/2024 Other chronic allergic conjunctivitis (ICD-10 - H10.45) 05/04/2024 Other chronic allergic conjunctivitis (ICD-10 - H10.45) 05/25/2024 Other chronic allergic conjunctivitis (ICD-10 - H10.45) 05/31/2024 Other chronic allergic conjunctivitis (ICD-10 - H10.45) 06/08/2024 Other chronic allergic conjunctivitis (ICD-10 - H10.45) 06/19/2024 Other chronic allergic conjunctivitis (ICD-10 - H10.45) 06/29/2024 Other chronic allergic conjunctivitis (ICD-10 - H10.45) 07/06/2024 Other chronic allergic conjunctivitis (ICD-10 - H10.45) 08/24/2024 Other chronic allergic conjunctivitis (ICD-10 - H10.45) 08/31/2024 Other chronic allergic conjunctivitis (ICD-10 - H10.45) 09/07/2024 Other chronic allergic conjunctivitis (ICD-10 - H10.45) 07/27/2024 Shortness of breath (ICD-10 - R06.02) Chaya has seasonal dyspnea and coughing concerning for asthma. She also has annual steroids for bronchitis -spirometry last visit was normal -discussed a trial of Breo to see if we can curb steroids during peak pollen season. She stopped after a month. didnt see any difference and cough and dyspnea stopped after strarting shots. Consider seasonal use 07/20/2024 Other chronic allergic conjunctivitis (ICD-10 - H10.45) 05/17/2024 Other chronic allergic conjunctivitis (ICD-10 - H10.45) 04/03/2024 Other chronic allergic conjunctivitis (ICD-10 - H10.45) 03/22/2024 Other chronic allergic conjunctivitis (ICD-10 - H10.45) 02/03/2024 Other chronic allergic conjunctivitis (ICD-10 - H10.45) 01/27/2024 Other chronic allergic conjunctivitis (ICD-10 - H10.45) 01/20/2024 Other chronic allergic conjunctivitis (ICD-10 - H10.45) 07/27/2024 Pruritus, unspecified (ICD-10 - L29.9) Chaya had an episode of sytemic itching and dyspnea in May. She felt it was due to being off allergy meds. She clearly needs daily medications -history is not c/w IgE mediated food allergies. Discussed blood testing checked by PCP - high false positives. Understands that she can be sensitized to a food on testing and clinically not be allergic. -eating unrestricted diet, instructed to continue -continue treatment for environmental allergens Plan Of Treatment Next Appt Details Provider Name:Diamond Conklin , 01/25/2025 03:30:00 PM, [address] [facility], [address], [place], [address], Insurance Providers Payer Name Payer Address Payer Phone Subscriber Number Group Number Insured Name Patient Relationship to Insured Coverage Start Date Coverage End Date [employer]omal [address] [place] [address] [phone] [id number] Chaya Romero Self - patient is the insured Medical (General) History Medical History History ICD Code Anxiety Cholesterol Hormone replacement therapy
--- OUTSIDE RECORDS SUMMARY | 2025-01-13 08:13 | XMS_ITS | Continuity of Care Document ---
Author Organization [facility] Address [address] [place] [address] Phone Care Team Providers Care Manager Supply Chain Name Role Phone Ponce Flores MD Unavailable Unavailable Allergies, Adverse Reactions, Alerts Substance Reaction Status Criticality No Known Allergies Active No Inform ation Medications Medication Instructions Dosage Effective Dates (start - stop) Status Comments Effexor XR 150 mg capsule,extended release take 1 capsule by oral route every day 150 MG - Active Procedures Procedure Date OFFICE/OUTPATIENT VISIT, EST PREV VISIT, EST, AGE 40-64 OFFICE/OUTPATIENT VISIT, EST OFFICE/OUTPATIENT VISIT, EST OFFICE/OUTPATIENT VISIT, EST OFFICE/OUTPATIENT VISIT, EST OFFICE/OUTPATIENT VISIT, EST PREV VISIT, EST, AGE 18-39 OFFICE/OUTPATIENT VISIT, EST PREV VISIT, EST, AGE 18-39 OFFICE/OUTPATIENT VISIT, EST OFFICE/OUTPATIENT VISIT, EST OFFICE/OUTPATIENT VISIT, EST OFFICE/OUTPATIENT VISIT, EST OFFICE/OUTPATIENT VISIT, EST PREV VISIT, NEW, AGE 18-39 OFFICE/OUTPATIENT VISIT, NEW Advance Directives Directive Yes / No Effective Date File Name No Information Encounters Encounter Description Practice Location Reason(s) For Visit Diagnoses Date Provider Providers Copied on Encounter [facility], [place], [address] [place] [address], [id number], [place] tel:[phone] [facility] [place] No Information Aug- 5 Mark Serra. [address], [address], [place], [place], [address] , [place]. tel:[phone] OFFICE/OUTPA TIENT VISIT, EST [facility], [place], [address], [place], [place], [id number], [place] tel:[phone] [facility] [place] LFT (chief complaint) HLP (chief complaint) anxiety1 (chief complaint) Mixed hyperlipidemiaGener alized Anxiety DisorderLiver diseaseEncounter for oth screening for malignant neoplasm of breast 5 Mark Serra. [address], [address], [place], [place], [id number] , [place]. tel:[phone] PREV VISIT, EST, AGE 40-64 [facility], [place], [facility], [address], [place], [place], [id number], [place] tel:[phone] [facility] [place] physical (chief complaint) Encounter for general adult medical examination without abnormal findings 4 Mark Serra. [address], [address], [place], [place], [address] , [place]. tel:[phone] OFFICE/OUTPA TIENT VISIT, [facility], [address], [place], [place], [id number], [place] tel:[phone] [facility] [place] anxiety1 (chief complaint) HLP (chief complaint) Generalized Anxiety DisorderMixed hyperlipidemia 4 Mark Serra. [address], [address], [place], [place], [id number] , [place]. tel:[phone] OFFICE/OUTPA TIENT VISIT, [facility], [address], [place], [place], [id number], [place] tel:[phone] [facility] [place] abd pain1 (chief complaint) anxiety1 (chief complaint) HLP (chief complaint) allergy1 (chief complaint) Allergic rhinitis due to pollenGeneralized Anxiety DisorderMixed hyperlipidemiaGastr oenteritisLiver diseaseLeukopeniaAb normal weight gain 4 Mark Serra. [address], [address], [place], [place], [address] , [place]. tel:[phone] OFFICE/OUTPA TIENT VISIT, EST [facility], [place], [address], [place], [place], [id number], [place] tel:[phone] [facility] [place] IBS1 (chief complaint) Irritable bowel syndrome with diarrhea 4 Mark Serra. [address], [address], [place], [place], [address] , [place]. tel:[phone] OFFICE/OUTPA TIENT VISIT, EST [facility], [place], [address], [place], [place], [id number], [place] tel:[phone] [facility] [place] allergy1 (chief complaint) Allergic rhinitis due to pollen 3 Mark Serra. [address], [address], [place], [place], [address] , [place]. tel:[phone] OFFICE/OUTPA TIENT VISIT, EST [facility], [place], [address], [place], [place], [id number], [place] tel:[phone] [facility] [place] glucose1 (chief complaint) HLP (chief complaint) menorrhagi a1 (chief complaint) weight1 (chief complaint) HTN (chief complaint) MenorrhagiaMixed hyperlipidemiaAbnor mal weight lossEssential (primary) hypertensionHypergl ycemiaInconclusive mammogram 3 Mark Jamil [address], [address], [place], [place], [address] , [place]. tel:[phone] PREV VISIT, EST, AGE 18-39 [facility], [place], [address], [place], [place], [address], [place] tel:[phone] [facility] [place] physical (chief complaint) Encounter for general adult medical exam w abnormal findingsMixed hyperlipidemiaGener alized Anxiety DisorderAbnormal weight gainMenorrhagia 3 Mark Serra. [address], [address], [place], [place], [address] , [place]. tel:[phone] PREV VISIT, EST, AGE 18-39 [facility], [place], [address], [place], [place], [address], [place] tel:[phone] [facility] [place] physical (chief complaint) Encounter for general adult medical exam w abnormal findingsGeneralized Anxiety DisorderAcute cystitis without hematuriaMixed hyperlipidemia 2 Mark Serra. [address], [address], [place], [place], [address] , [place]. tel:[phone] OFFICE/OUTPA TIENT VISIT, [facility], [address], [place], [place], [address], [place] tel:[phone] [facility] [place] passing out (chief complaint) UTI1 (chief complaint) anxiety1 (chief complaint) Vasovagal attackGeneralized Anxiety DisorderUrinary tract infection 2 Mark Serra. [address], [address], [place], [place], [address] , [place]. tel:[phone] OFFICE/OUTPA TIENT VISIT, [facility], [address], [place], [place], [address], [place] tel:[phone] [facility] [place] HLP (chief complaint) anxiety1 (chief complaint) UTI1 (chief complaint) Generalized Anxiety DisorderHyperlipide miaUrinary tract infection 1 Mark Serra. [address], [address], [place], [place], [address] , [place]. tel:[phone] OFFICE/OUTPA TIENT VISIT, [facility], [address], [place], [place], [address], [place] tel:[phone] [facility] [place] HLP (chief complaint) anxiet1 (chief complaint) weight gain1 (chief complaint) Generalized Anxiety DisorderHyperlipide miaAbnormal weight gain 1 Mark Serra. [address], [address], [place], [place], [address] , [place]. tel:[phone] OFFICE/OUTPA TIENT VISIT, [facility], [address], [place], [place], [address], [place] tel:[phone] [facility] [place] HLP (chief complaint) anxiety1 (chief complaint) HyperlipidemiaGener alized Anxiety DisorderInsomnia 1 Mark Jamil [address], [place], [place], [address] , [place]. tel:[phone] PREV VISIT, NEW, AGE 18-39 [facility] [place], [address], [place], [place], [address], tel:[phone] [facility] [place] physical (chief complaint) Encounter for general adult medical exam w abnormal findingsGeneralized Anxiety Disorder Sep- 1 Mark Jamil [address], [place], [place], [address] , . tel:[phone] Family History Family Member Type Diagnosis Age At Onset Father Problem lung CA, DM Mother Problem Hypertension Sister Problem bipolar Mother Problem High cholesterol Mother Problem Coronary artery disease 71 Mother Problem breast and uterine CA BRCA n egative Payers Payer name Insurance type Covered alliance party ID Authoriza tion(s) No Information Social History Type Description Quantity Date Captured Comments Sex Female Smoking Status No Information Chief Complaint And Reason For Visit No Information Plan Of Treatment Date Type Action Status No Information History Of Present Illness Encounter Date Complaint History Of Prese nt Illness HLP Pt has been off crestor and her lipid profile is getting worse again. LFT Pt has history o f mildly high LFT Pt denies any abd pain or jaundice. Pt rarely drinks alcohol anxiety1 Pt has chronic a nxiety and depression Pt is on effexor 75 mg daily Pt has been having a lot of stress at work and she has been having frequent crying spels Pt denies any suicidal or homicidal thought physical Pt needs annual physical. Pt has chronic anxiety and depression Pt takes effexor and doing ok Pt denies ay suicidal or homicidal thought. Pt has HLP pt takes crestor. Pt denies any myalgia. Pt had lab done which showed mildly high LFT and high TG Pt does not have viral hepatitis. Pt c/o acute sinus pain and drainage and some sinus headache for several days. Pt denies any fever, cough or sob. HLP Pt has HLP Pt is on crestor pt denies any myalgia anxiety1 Pt has chronic a nxiety and depression Pt takes effexor and doing ok Pt denies any suicidal or homicidal thought Pt denies any crying spells HLP Pt has HLP Pt ta kes crestor Pt denies any myalgia anxiety1 Pt has chronic a nxiety and depression Pt takes effexor and doing ok pt denies any suicidal or homicidal thought Pt denies any crying spells . abd pain1 Pt recently went to ER due to acute onset of right lower abdominal cramp and pain and some chills with some non-bloody diarrhea. pt denies any fever pt denies any blood in stool. Pt had CT done which showed 3 mm nonobstructive right renal stone. Pt had lab done which showed leukopenia and also elevated LFT. Pt was prescribed bentyl and discharged home. Pt states that abdominal pain completely resolved. Pt denies any urinary symptoms. her diarrhea resolved. allergy1 Pt has seasonal allergy with occasional sob. Pt denies any wheezing Pt is seeing web communications specialist and she is on singulair, breo now. Pt states that she rarely feels sob and she is not sure why she is on breo. Pt also is receiving allergy shot weekly now. IBS1 pt has been havi ng frequent abdominal bloating with non-bloody diarrhea since . Pt denies any angel luis abdominal pain Pt denies any nausea, vomiting .GERD, early satiety, weight loss, appetite loss, etc. Pt no longer has any other allergy reactions Pt does have some mild food allergy and environmental allergies. allergy1 Pt c/o acute ons et of itchy eyes, with some burning sensation, some mild cough and a little sob along with diffuse body itching without rash, chest tightness and throat tingling about one week ago. Pt denies any known allergy reaction Pt denies any dysphagia. Pt went to urgent care and was given prednisone and also singulair and her symptoms resolved. Pt was told by urgent care physician to follow up for allergy testing. Pt did eat some mushroom the day prior to onset of symptoms. Pt states that currently symptoms all resolved . HTN Pt has mild HNT Pt denies any chest pain or headache. weight1 Pt is obese. pt has been taking phentermine for 3 months and she lost 7 pounds Pt notices more energy and less appetite with phentermine Pt denies any chest pain or headache menorrhagia1 Pt has heavy per iod Pt had lab done which showed normal hormones. Pt denies any pelvic pain. Pt has normal hemoglobin and iron levels HLP Pt has HLP Pt ta kes crestor and her lipid profile is ok. Pt denies any myalgia glucose1 Pt has mildly hi gh glucose Pt denies any polyuria polydipsia . physical Pt needs annual physical. Pt has chronic anxiety and depression. Pt takes effexor and doing ok. Pt denies any suicidal or homicidal thought. Pt denies any crying spells .Pt has HLP Pt takes crestor .Pt denies any myalgia. Pt wants to try weight loss medication Pt has difficulty losing weight. Pt also has heavy period with dysmenorrhea. Pt is on Slynd now by CAD DESIGN ENGINEER. Pt denies any pelvic pain physical Pt needs annual physical. Pt has chronic anxiety and depression and she is doing ok with effexor Pt denies any suicidal or homicidal thought Pt denies any crying spells. Pt has HLP Pt has been off crestor and her lipid profile is getting worse again. Pt tolerated crestor ok. Pt was treated for UTI and she denies any urinary symptoms .her UA is clear. Pt accidently hit her nose on a metal bar several days ago and she initially noticed mild bruising. Pt vicky any nasal drainage or any difficulty with breathing. Pt denies any nose bleeding. Pt denies any pain or bruising currently. anxiety1 Pt has chronic a nxiety and depression Pt takes effexor 75 mg and she is doing much better Pt denies any suicidal or homicidal thought Pt denies any crying spells. her mood is much improved. Pt denies any side effects UTI1 Pt finished macr obid and she denies any UTI symptoms passing out Pt states that s he was with her and daughter two days ago eating at a restaurant and she felt sudden onset of dizziness, sweaty, sick to her stomach, feeling about the pass out, etc. Pt states that the episode lasted 2-3 mins. She was talking to her daughter and the whole time and apparently there is no LOC. The above occurred two days ago. According to her daughter .she did not have any seizure like activity. Pt still remember she was talking but she feels very strange. Pt denies any chest pain, palpitation, etc. Pt denies any sob Pt denies any vomiting Pt denies any confusion or headache Pt denies any similar occurrence in the past. pt denies any speech issue or weakness. Pt states that symptoms completely resolved after 2-3 mins. Pt denies any paresthesia HLP Pt has HLP Pt contreras s been taking crestor and her lipid profile is much improved Her TC is ok now TG is borderline high pt denies any myalgia anxiety1 Pt has chronic a nxiety and depression Pt takes effexor and she noticed much improvement of her mood. Pt states that she could use higher dose for more improvement. Pt denies any suicidal or homicidal thought Pt denies any crying spells UTI1 Pt c/o urinary b urning, frequency and urgency for 2-3 days Pt denies any flank pain ,fever, chill ,abdominal pain. weight gain1 Pt has been gain ing weight Pt is not very active. anxiet1 Pt has chronic a nxiety and depression Pt failed zoloft also Pt feels more depressed with zoloft. Pt denies any suicidal or homicidal thought Pt denies any crying spells Pt states that she felt more irritable with zoloft HLP Pt has HLP Pt ta kes crestor and her lipid profile is much improved. Her TG is borderline high anxiety1 Pt has chronic a nxiety and depression Pt states that paxil did work but she has insomnia with it even after 30 days with paxil Pt takes paxil in the morning but she can not fall asleep at night despite using OTC meds for sleep. Pt states that her anxiety and depression are much better with paxil but she can not tolerate insomnia. Pt also failed lexapro. Pt denies any suicidal or homicidal thought Pt denies any crying spells HLP Pt has HLP Pt st ates that she eats very healthy .Pt does not eat a lot of fatty stuff. Pt eats chicken only Pt does have family history of HLP physical Pt needs annual physical Pt has chronic anxiety and depression Pt denies any suicidal or homicidal thought Pt denies any crying spells. Pt was taking lexapro and worked ok but not great and she stopped it 3 months ago. Pt currently feels anxious and depressed with poor motivation Pt feels overwhelmed Pt feels social anxiety. Pt also has difficulty losing weight .Pt denies any other complaints Instructions Date Instruction Additional Infor keri No Information Assessments Type Assessment Date No Information
== END 2025-01-13 08:11 | disposition home or self-care (01) ==
PROVIDERS: PCP Emergency Medicine; Visit Provider Nurse Practitioner Obstetrics & Gynecology
DX: Z12.31 Encounter for screening mammogram for malignant neoplasm of breast (principal)
CPT/HCPCS: 77063; 77067